=== PATIENT | female | born 1945 | race American Indian/Alaskan Native ===

== ENCOUNTER 2021-10-17 21:22 | Inpatient (IN) | payer BC, MEDICARE ==
[~2021-10-17] VITALS: Ht 160 cm; Wt 57.9 kg
[2021-10-17 22:41] LABS: Mean Corpuscular HGB 32.8 pg (26.0-34.0); Mean Corpuscular HGB Conc 31.7 g/dL (31.5-36.5); Mean Corpuscular Volume 103 fL (80-100); Mean Platelet Volume 12.9 fL (9.1-12.4); NRBC ABSOLUTE 1.39 K/mm3 (0.00-0.02); NRBC Auto 1.1 /100 WBC (0.0-0.2); Platelet Count 59 K/mm3 (150-400); RDW Coefficient Variation 16.6 % (11.7-14.2); RDW Standard Deviation 59.9 fL (35.1-46.3); Red Blood Cell Count 1.22 M/mm3 (3.80-5.20)
[2021-10-17 22:45] LABS: Hematocrit 12.6 % (33.0-51.0); White Blood Cell Count 130.32 K/mm3 (4.00-11.30)
[2021-10-17 22:55] LABS: Albumin, Blood 2.5 g/dL (3.4-5.0); Albumin/Globulin Ratio 0.6 (0.8-1.8); Bilirubin, Total 0.5 mg/dL (0.1-1.0); Calcium, Blood 8.2 mg/dL (8.5-10.1); Creatinine, Blood 0.95 mg/dL (0.40-1.00); Globulin, Blood 3.9 g/dL (2.2-4.0); Total Protein, Blood 6.4 g/dL (6.4-8.2)
[2021-10-17 23:11] LABS: BASOPHILS PERCENT MAN 0 % (0-2); BLASTS PERCENT MAN 95 % (0-0); EOSINOPHILS PERCENT MAN 0 % (0-6); LYMPHOCYTES ABSOLUTE MAN 5.21 K/mm3 (0.84-5.20); LYMPHOCYTES PERCENT MAN 4 % (21-46); MONOCYTES PERCENT MAN 1 % (4-13); TOTAL CELLS COUNTED 100
[2021-10-18] MEDS ORDERED: LORAZEPAM0.5 MG PO (01:31)
--- NOTE | 2021-10-18 02:45 | NUR ---
PT ARRIVES TO PCU VIA GURNEY WITH 2ND UNIT OF PRBC'S TRANSFUSING. PT CONTINUES TO FEELS WEAK, SO SHE IS TRANSFERRED TO PCU BED BY STAFF. PT IS AO, DENIES SOB, PAIN, BUT IS RESTLESS. PT AND SPOUSE BOTH STATE THEY ARE SADDENED AND OVERWHELMED BY HER NEW POSSIBLE DIAGNOSIS SINCE SHE HAS ENJOYED VERY GOOD HEALTH UNTIL NOW. PT HAS HX OF ANXIETY, FOR WHICH SHE OCCASIONALLY TAKES ATIVAN AND HAS HAD A HYSTER AND CHOLECYSTECTOMY. PT SKIN IS PALE, DRY. PIV X [address] IN BILAT AC'S. WILL INITIATE ADMIT ORDERS AND CONTINUE TO MONITOR.
--- NOTE | 2021-10-18 03:35 | NUR ---
DR GEORGES IS CALLED TO CLARIFY TRANSFUSION ORDERS. WILL TRANSFUSE TOTAL OF 4 UNITS PRBC'S AND DRAW LABS AFTER COMPLETED.
--- NOTE | 2021-10-18 06:50 | NUR ---
PT IS SLEEPING MORE RESTFULLY. 3RD OF 4 UNITS PRBC'S INFUSING. VSS. PT HAS NOT YET VOIDED, SO SPECIMEN FOR UA IS PENDING. NO OTHER SIGNIFICANT CHANGES NOTED. WILL CALL CONSULT FOR HEMATOLOGY IN AM. WILL CONTINUE TO MONIOTR AND REPORT TO ONCOMING SHIFT.
[2021-10-18 14:37] LABS: Hematocrit 30.2 % (33.0-51.0); Hemoglobin 10.6 g/dL (11.5-16.0); Mean Corpuscular HGB 30.4 pg (26.0-34.0); Mean Corpuscular HGB Conc 35.1 g/dL (31.5-36.5); NRBC ABSOLUTE 1.49 K/mm3 (0.00-0.02); NRBC Auto 1.6 /100 WBC (0.0-0.2); RDW Coefficient Variation 17.7 % (11.7-14.2); RDW Standard Deviation 52.5 fL (35.1-46.3); Red Blood Cell Count 3.49 M/mm3 (3.80-5.20)
[2021-10-18 14:40] LABS: Mean Corpuscular Volume 87 fL (80-100)
[2021-10-18 14:41] LABS: White Blood Cell Count 95.26 K/mm3 (4.00-11.30)
[2021-10-18 14:42] LABS: Platelet Count 35 K/mm3 (150-400)
[2021-10-18 14:51] LABS: Bun/Creatinine Ratio 18.3 (12.0-20.0); Calcium, Blood 8.1 mg/dL (8.5-10.1); Creatinine, Blood 0.93 mg/dL (0.40-1.00); Potassium, Blood 4.1 mmol/L (3.5-5.5)
--- NOTE | 2021-10-18 17:20 | NUR ---
SHIFT SUMMARY; ASSUMED CARE AT 0700. A/A/OX4. 4 UNITS PRBC COMPLETE SINCE ADMISSION. REPOSITIONS SELF ON BED INDEPENDANTLY, AMBULATES TO RESTROOM WITH WALKER AND STANDBY ASSIST. FAMILY AT BEDSIDE MOST OF SHIFT. DR. COTTON MET WITH PT TODAY TO DISCUSS DIAGNOSIS. PALLATIVE CARE CONSULT ORDERED. PT UNSURE AT THIS POINT IF WILL HAVE TREATMENT. BONE MARROW BX SCHEDULED WITH RADIOLOGY FOR THURSDAY. WILL CONTINUE TO MONITOR AND TREAT UNTIL CHANGE OF SHIFT.
[2021-10-19 04:37] LABS: Hematocrit 28.5 % (33.0-51.0); Hemoglobin 9.8 g/dL (11.5-16.0); Mean Corpuscular HGB 30.2 pg (26.0-34.0); Mean Corpuscular HGB Conc 34.4 g/dL (31.5-36.5); Mean Corpuscular Volume 88 fL (80-100); NRBC ABSOLUTE 1.58 K/mm3 (0.00-0.02); NRBC Auto 1.9 /100 WBC (0.0-0.2); RDW Standard Deviation 54.3 fL (35.1-46.3); Red Blood Cell Count 3.25 M/mm3 (3.80-5.20)
[2021-10-19 04:52] LABS: Platelet Count 34 K/mm3 (150-400); White Blood Cell Count 85.16 K/mm3 (4.00-11.30)
--- NOTE | 2021-10-19 05:08 | NUR ---
SHIFT SUMMARY PT IS ALERT AND ORIENTED X4. SHE DENIES CHEST PAIN/PRESSURE, NO SOB. VITALS ARE STABLE AND IS ON ROOM AIR WITH SATS ABOVE 92%. PT DID HAVE A FEVER OF 100.2 AND WAS TREATED PER EMAR. SHE IS ABLE TO GET UP TO THE BATHROOM SBA USING FWW. SHE HAD TO CRITICAL LABS THIS MORNING OF WBC AND PLT. CALL LIGHT IS WITHIN REACH.
[2021-10-19 06:12] LABS: BASOPHILS PERCENT MAN 0 % (0-2); BLASTS PERCENT MAN 93 % (0-0); EOSINOPHILS PERCENT MAN 0 % (0-6); LYMPHOCYTES ABSOLUTE MAN 5.96 K/mm3 (0.84-5.20); LYMPHOCYTES PERCENT MAN 7 % (21-46); MONOCYTES PERCENT MAN 0 % (4-13); TOTAL CELLS COUNTED 100
[2021-10-19 07:02] LABS: SEG NEUTROPHILS PERCENT MAN 0 % (41-73)
--- NOTE | 2021-10-19 13:21 | NUR ---
Pal Care visit made to pt and at bedside. appropriately tearful and sad. Pt is alert, oriented and sl withdrawn. Chief c/o fatigue. She denies pain. and pt indicate they plan to proceed with bone marrow biopsy scheduled for Thursday. mentioned that it may be done as an outpatient if pt is d/c'd home today or tomorrow. He is aware that pt had an episode of a-fib and this is new for pt. Gently discussed code status and wishes. Pt and both indicate that full code status desired at this time. asked about medications to help pt be more comfortable at home. Pt denies pain but we discussed avoidance of NSAIDS unless cleared by Dr, use of tylenol for mild pain and other medications available for mod to severe pain. I inquired about anxiety and pt states she has used ativan in the past for anxiety prn and that she has a current rx for that at home. She denies the need for it at this time. Time spent listening and supporting. 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 Pt has been feeling tired and under the weather for a few weeks but thought it was related to chemical use in garden. later expressed to RN some apprehension that children will want to pursue agressive measures and stated he and not in favor of that. Plan to visit daily for support.
[2021-10-19 14:42] LABS: Source, Urine Clean Catch
[2021-10-19 14:45] LABS: Appearance, Urine Hazy (Clear); Blood, Urine 4+ (Neg); Color, Urine Amber (P-Yellow); Glucose Qualitative, Urine Neg (Neg); Ketones, Urine 3+ (Neg); Leukocyte Esterase, Urine 1+ (Neg); Nitrite, Urine Neg (Neg); Protein, Urine 2+ (Neg); Urobilinogen, Urine 3+ (Normal)
[2021-10-19 14:56] LABS: Bilirubin, Urine 1+ (Neg)
[2021-10-19 15:17] LABS: Bacteria Mod /hpf; Squamous Epithelial Cells Mod /hpf (Few)
[2021-10-19 15:18] LABS: Hyaline Casts 0-2 /lpf (0-2)
--- NOTE | 2021-10-19 17:35 | NUR ---
SHIFT SUMMARY; ASSUMED CARE AT 0700, A/A/OX4 DURING SHIFT. STANDY BY ASSIST WITH AMBULATION, FAMILY AT BEDSIDE MOST OF DAY, PALLATIVE CARE RN MET WITH PT AND SPOUSE. BONE MARROW BX SCHEDULED WITH RADIOLOGY THURSDAY AND . VSS, NO ACUTE MEDICAL CHANGES, WILL CONTINUE TO MONITOR AND TREAT UNTIL CHANGE OF SHIFT.
[2021-10-20 04:18] LABS: Hemoglobin 10.1 g/dL (11.5-16.0); Mean Corpuscular HGB 30.4 pg (26.0-34.0); Mean Corpuscular HGB Conc 33.7 g/dL (31.5-36.5); Mean Corpuscular Volume 90 fL (80-100); NRBC ABSOLUTE 1.32 K/mm3 (0.00-0.02); NRBC Auto 1.4 /100 WBC (0.0-0.2); RDW Coefficient Variation 17.7 % (11.7-14.2); RDW Standard Deviation 57.1 fL (35.1-46.3); Red Blood Cell Count 3.32 M/mm3 (3.80-5.20)
[2021-10-20 04:23] LABS: Platelet Count 28 K/mm3 (150-400); White Blood Cell Count 95.94 K/mm3 (4.00-11.30)
[2021-10-20 04:41] LABS: Free Thyroxine 1.66 ng/dL (0.70-1.60); Thyroid Stimulating Hormone 0.493 uIU/mL (0.360-4.800); Triiodothyronine, Free 2.1 pg/mL (2.18-3.98)
[2021-10-20 06:25] LABS: BASOPHILS PERCENT MAN 0 % (0-2); BLASTS PERCENT MAN 93 % (0-0); EOSINOPHILS PERCENT MAN 0 % (0-6); LYMPHOCYTES ABSOLUTE MAN 6.71 K/mm3 (0.84-5.20); LYMPHOCYTES PERCENT MAN 7 % (21-46); MONOCYTES PERCENT MAN 0 % (4-13); TOTAL CELLS COUNTED 100
--- NOTE | 2021-10-20 06:27 | NUR ---
SHIFT SUMMARY PT IS ALERT AND ORIENTED. VITALS HAVE REMAINED STABLE AND PT IS ON ROOM AIR WITH SATS ABOVE 92%. THERE HAVE BEEN NO ACUTE CHANGES T/O THE NIGHT. PT DENIES CHEST PAIN/PRESSURE OR SOB. SHE DID HAVE A LOW GRADE FEVER. PT IS SOMEWHAT UNSTABLE ON HER FEET AND IS A SBA WITH FWW. CALL LIGHT IS WITHIN REACH.
[2021-10-20 06:28] LABS: BAND PERCENT MAN 0 % (0-8); SEG NEUTROPHILS PERCENT MAN 0 % (41-73)
--- NOTE | 2021-10-20 06:58 | NUR ---
[facility]ORD[facility] NOT ACCESS[facility] FROM [phone] [id number] 10/19/21
--- NOTE | 2021-10-20 17:45 | NUR ---
SHIFT SUMMARY; ASSUMED CARE AT 0700. A/A/OX3. INDEPENDANT IN ROOM WITH STANDBY ASSIST. VSS. FAMILY AT BEDSIDE MOST OF DAY. STATUS CHANGED TO MEDICAL. PLAN FOR BONE MARROW BX TOMORROW. WILL CONTINUE TO MONITOR AND TREAT UNTIL CHANGE OF SHIFT.
[2021-10-20 22:58] LABS: Source, Urine Clean Catch
[2021-10-20 23:08] LABS: Appearance, Urine Hazy (Clear); Bilirubin, Urine Neg (Neg); Blood, Urine 4+ (Neg); Color, Urine Yellow (P-Yellow); Glucose Qualitative, Urine Neg (Neg); Ketones, Urine 1+ (Neg); Leukocyte Esterase, Urine Neg (Neg); Nitrite, Urine Neg (Neg); Protein, Urine 2+ (Neg); Specific Gravity, Urine 1.015 (1.003-1.022); Urobilinogen, Urine 3+ (Normal)
[2021-10-20 23:21] LABS: Bacteria Many /hpf; Squamous Epithelial Cells Mod /hpf (Few)
--- NOTE | 2021-10-21 00:05 | NUR ---
CALLED DR BOOTH REGARDING PT BEING ANXIOUS FOR HER PROCEDURE IN THE MORNING. SHE MENTIONED THAT SHE MIGHT WANT HER ATIVAN LATER. ORDER OF ATIVAN 0.5MG PO PRN, OBTAINED AND ENTERED.
[2021-10-21 04:45] LABS: Hematocrit 26.4 % (33.0-51.0); Hemoglobin 8.6 g/dL (11.5-16.0); Mean Corpuscular HGB Conc 32.6 g/dL (31.5-36.5); Mean Corpuscular Volume 92 fL (80-100); NRBC ABSOLUTE 0.82 K/mm3 (0.00-0.02); NRBC Auto 1.2 /100 WBC (0.0-0.2); RDW Coefficient Variation 17.2 % (11.7-14.2); RDW Standard Deviation 55.8 fL (35.1-46.3); Red Blood Cell Count 2.87 M/mm3 (3.80-5.20)
[2021-10-21 04:52] LABS: International Normalized Ratio 1.34; Prothrombin Time Results 13.8 Sec (9.7-11.5)
[2021-10-21 04:55] LABS: Platelet Count 19 K/mm3 (150-400)
[2021-10-21 04:56] LABS: Anion Gap 8 mmol/L (6-16); Blood Urea Nitrogen 15 mg/dL (8-24); CO2, Blood 23 mmol/L (21-32); Calcium, Blood 8.1 mg/dL (8.5-10.1); Chloride, Blood 105 mmol/L (98-108); Creatinine, Blood 0.79 mg/dL (0.40-1.00); Glomerular Filtration Rate 78 (60-); Glucose, Blood 109 mg/dL (70-99); Phosphorus, Blood 3.6 mg/dL (2.5-4.9); Potassium, Blood 3.6 mmol/L (3.5-5.5); Sodium, Blood 136 mmol/L (136-145); White Blood Cell Count 66.06 K/mm3 (4.00-11.30)
--- NOTE | 2021-10-21 05:09 | NUR ---
SHIFT SUMMARY PT IS ALERT AND ORIENTED. VITAL SIGNS ARE STABLE AND PT IS ON ROOM AIR WITH SATS AT 92%. TEMP DID INCREASE AND WAS TREATED PER ORDER. THERE HAVE BEEN NO OTHER ACUTE CHANGES. PT STS SHE IS VERY TIRED AND SLEEPY. SHE HAS GOTTEN UP TO THE BATHROOM SBA WITH SOME WEAKNESS BUT BETTER GAIT THEN PREVIOUS NIGHT SHIFTS. SHE DID STATE THAT SHE FELT BETTER. CALL LIGHT WITHIN REACH
--- NOTE | 2021-10-21 05:51 | NUR ---
CALLED DR BOOTH REGARDING CRITICAL LAB VALUES OF PLT 19 AND PT WILL BE HAVING BONE MARROW BIOPSY TODAY. NO FURTHER ORDERS GIVEN.
--- NOTE | 2021-10-21 09:12 | NUR ---
VS OBTAINED, AM MEDS GIVEN. PT ORIENTED X4, IN NAD. REPORT GIVEN TO VITO QUESADA FOR TRANSFER FOR MEDICAL FLOOR.
--- NOTE | 2021-10-21 10:55 | NUR ---
PT TEMP 102.5, 94/66, RESP 28, O2 90% R/A CALLED DR. GEORGES, WILL ORDER FLUIDS. OKAY GIVE TYLENOL AND PLATELETS
--- NOTE | 2021-10-21 11:09 | NUR ---
STARTED PLATELETS, AT RADIOLOGY NEEDS PT NOW. UNDERSTANDS ON PLATELETS AT THIS TIME. OKAY TO GO PER DR AND PER CHARGE.
--- NOTE | 2021-10-21 12:11 | NUR ---
Attempted f/u visit earlier this am. Pt our of room, possible for procedure.
[2021-10-21 14:20] LABS: Performing Lab SYMBIODX; Test Name CYTOGENETICS
--- NOTE | 2021-10-21 15:59 | NUR ---
Request for spiritual care visit made for tomorrow and report on pt called to [employer].
--- NOTE | 2021-10-21 18:29 | NUR ---
PT PLEASANT TODAY. DID HAVE BIOPSY PROCEDURE TODAY. LOW BP DURING PROCEDURE. WAS NOT NOTIFIED. GOT UPDATED WHEN RETUKRNED TO ROOM. DISCUSSED WITH DR. CHARIEZ ORDERED AND GIVEN. MAINTANANCE FLUID STARTED. BLOOD CULTURES POSITIVE. ABX STARTED. NEW BLOOD CULTURES TAKEN. PT AWAKE AND ORIENTED. FAMILY WAS IN MOST OF DAY. BED IN LOW POSITION, CALL LITE IN REACH, CALLS APPROP
[2021-10-22 08:29] LABS: Hematocrit 24.2 % (33.0-51.0); Hemoglobin 7.9 g/dL (11.5-16.0); Mean Corpuscular HGB 30.4 pg (26.0-34.0); Mean Corpuscular HGB Conc 32.6 g/dL (31.5-36.5); Mean Corpuscular Volume 93 fL (80-100); Mean Platelet Volume 9.7 fL (9.1-12.4); NRBC ABSOLUTE 0.52 K/mm3 (0.00-0.02); NRBC Auto 1.1 /100 WBC (0.0-0.2); RDW Coefficient Variation 16.9 % (11.7-14.2); RDW Standard Deviation 55.5 fL (35.1-46.3); White Blood Cell Count 46.33 K/mm3 (4.00-11.30)
[2021-10-22 08:32] LABS: Platelet Count 25 K/mm3 (150-400)
[2021-10-22 09:05] LABS: Bun/Creatinine Ratio 17.6 (12.0-20.0); Calcium, Blood 7.5 mg/dL (8.5-10.1); Creatinine, Blood 0.74 mg/dL (0.40-1.00); Potassium, Blood 3.7 mmol/L (3.5-5.5)
--- NOTE | 2021-10-22 15:51 | NUR ---
Spiritual care visit conducted. Pt is sitting up in bed and alert. Pt's family is present and no one is very warm toward a spiritual care visit initially. I believe it was pt's son who tells me that they are waiting on a biopsy results to determine their course of action. He says he has a team of oncologists in [place] that will be monitoring the decisions and along with the docs from our [facility] will look at treatment options. 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 I provide prayer along those lines as well as providing therapeutic listening and support. Pt and family respond well. Pt is tearful during the prayer but voices appreciation for the visit. I will continue to remain available to pt and family.
--- NOTE | 2021-10-22 16:52 | NUR ---
PATIENT A/OX4, UP WITH 1 ASSIST TO RESTROOM TODAY. PATIENT VERY WITHDRAWN AND QUIET. MULTIPLE FAMILY MEMBERS AT BEDSIDE THIS SHIFT. PATIENT CONTINUES TO HAVE FEVERS, MEDICATING WITH TYLENOL. REPORTS SORE THROAT, TEA WITH HONEY AND CEPACOL LOZENGES USED TO TREAT. SKIN INTACT. NS @ 100ML/HR INFUSING. 20G IV TO L HAND WNL. DENIES ANY NAUSEA OR ABDOMINAL PAIN, REPORTS POOR APPETITE DUE TO SORE THROAT.
--- NOTE | 2021-10-23 05:49 | NUR ---
SHIFT SUMMARY NOC: PT FEBRILE TONIGHT UP TO 101.3 F ORAL. TYLENOL GIVEN AND COLD WASHCLOTH PLACED ON FOREHEAD, RECHECK AT 0524 100.6 F ORAL. PT ANXIOUS LAST NIGHT AND COULDN'T SLEEP, PRN ATIVAN GIVEN. PT UP TO COMMODE MULTIPLE TIMES TO VOID AND BOWEL MOVEMENT.
[2021-10-23 08:05] LABS: Hematocrit 26.1 % (33.0-51.0); Hemoglobin 8.3 g/dL (11.5-16.0); Mean Corpuscular HGB 29.7 pg (26.0-34.0); Mean Corpuscular HGB Conc 31.8 g/dL (31.5-36.5); Mean Corpuscular Volume 94 fL (80-100); NRBC ABSOLUTE 0.62 K/mm3 (0.00-0.02); NRBC Auto 1.2 /100 WBC (0.0-0.2); RDW Coefficient Variation 16.7 % (11.7-14.2); RDW Standard Deviation 56.5 fL (35.1-46.3); Red Blood Cell Count 2.79 M/mm3 (3.80-5.20)
[2021-10-23 08:16] LABS: White Blood Cell Count 51.89 K/mm3 (4.00-11.30)
[2021-10-23 08:17] LABS: Platelet Count 23 K/mm3 (150-400)
[2021-10-23 08:21] LABS: Bun/Creatinine Ratio 14.6 (12.0-20.0); Calcium, Blood 7.9 mg/dL (8.5-10.1); Creatinine, Blood 0.68 mg/dL (0.40-1.00)
[2021-10-23 08:49] LABS: BASOPHILS PERCENT MAN 0 % (0-2); BLASTS PERCENT MAN 96 % (0-0); EOSINOPHILS PERCENT MAN 0 % (0-6); LYMPHOCYTES ABSOLUTE MAN 2.07 K/mm3 (0.84-5.20); LYMPHOCYTES PERCENT MAN 4 % (21-46); MONOCYTES PERCENT MAN 0 % (4-13); TOTAL CELLS COUNTED 100
[2021-10-23 08:52] LABS: BAND PERCENT MAN 0 % (0-8); SEG NEUTROPHILS PERCENT MAN 0 % (41-73)
[2021-10-23 15:26] LABS: Source, Urine Clean Catch
[2021-10-23 15:39] LABS: Appearance, Urine Clear (Clear); Bilirubin, Urine Neg (Neg); Blood, Urine 3+ (Neg); Color, Urine Amber (P-Yellow); Glucose Qualitative, Urine Neg (Neg); Ketones, Urine 3+ (Neg); Leukocyte Esterase, Urine Neg (Neg); Nitrite, Urine Neg (Neg); Protein, Urine 2+ (Neg); Specific Gravity, Urine 1.015 (1.003-1.022); Urobilinogen, Urine 1+ (Normal)
[2021-10-23 15:56] LABS: Bacteria Few /hpf; Squamous Epithelial Cells Few /hpf (Few); White Blood Cells, Urine 0-2 /hpf (0-5)
[2021-10-23 15:57] LABS: Granular Casts 0-2 /lpf (0); Hyaline Casts 0-2 /lpf (0-2)
--- NOTE | 2021-10-23 17:36 | NUR ---
NO NEW CONCERNS THIS SHIFT. PATIENT REPORTS THAT SORE THROAT IS IMPROVING, DENIES NEED FOR CEPACOL LOZENGES. TOLERATING DIET, APPETITE SLIGHTLY IMPROVED TODAY. VSS, ON RA. FEVER THIS AFTERNOON, MEDICATED WITH TYLENOL. DENIES ANY NAUSEA OR ABDOMINAL PAIN. UP WITH 1 ASSIST TO BSC, WEAK WITH TRANSFERS. CONTINENT OF URINE/STOOL, HAVING REGULAR BM'S. ABLE TO MAKE NEEDS KNOWN.
--- NOTE | 2021-10-24 05:45 | NUR ---
SHIFT SUMMARY NOC: PT SLEPT MOST OF NIGHT. SLIGHTLY FEBRILE THIS AM 100.3 F ORAL, NO TYLENOL GIVEN. NO ACUTE EVENTS.
[2021-10-24 10:08] LABS: Hematocrit 26.2 % (33.0-51.0); Hemoglobin 8.3 g/dL (11.5-16.0); Mean Corpuscular HGB 29.9 pg (26.0-34.0); Mean Corpuscular HGB Conc 31.7 g/dL (31.5-36.5); Mean Corpuscular Volume 94 fL (80-100); NRBC ABSOLUTE 0.72 K/mm3 (0.00-0.02); RDW Coefficient Variation 16.7 % (11.7-14.2); Red Blood Cell Count 2.78 M/mm3 (3.80-5.20)
[2021-10-24 10:29] LABS: Bun/Creatinine Ratio 16.1 (12.0-20.0); Calcium, Blood 8.2 mg/dL (8.5-10.1); Creatinine, Blood 0.62 mg/dL (0.40-1.00); Potassium, Blood 3.4 mmol/L (3.5-5.5)
[2021-10-24 10:34] LABS: Platelet Count 22 K/mm3 (150-400); White Blood Cell Count 73.75 K/mm3 (4.00-11.30)
[2021-10-24 13:02] LABS: BASOPHILS PERCENT MAN 0 % (0-2); BLASTS PERCENT MAN 96 % (0-0); EOSINOPHILS PERCENT MAN 0 % (0-6); LYMPHOCYTES ABSOLUTE MAN 2.95 K/mm3 (0.84-5.20); LYMPHOCYTES PERCENT MAN 4 % (21-46); MONOCYTES PERCENT MAN 0 % (4-13); TOTAL CELLS COUNTED 200
[2021-10-24 14:14] LABS: SEG NEUTROPHILS PERCENT MAN 0 % (41-73)
--- NOTE | 2021-10-24 18:16 | NUR ---
PATIENT A/OX4, CAN BE UP INDEPENDENTLY IN ROOM WITH FWW. DENIES ANY PAIN OR DISCOMFORT. REPORTED SOME SOB THIS AM, PLACED ON 2LO2 FOR COMFORT AND ATIVAN GIVEN TO TREAT ANXIETY. SOB HAS RESOLVED. WORKED WITH PT/OT TODAY. 20G IV TO L HAND WNL AND SL. FAMILY VERY SUPPORTIVE. PATIENT HOPES TO D/C HOME TOMORROW AND BEGIN TREATMENT FOR LEUKEMIA ON THURSDAY.
--- NOTE | 2021-10-25 06:01 | NUR ---
SHIFT SUMMARY AOX4. SLOW TO RESPOND TO QUESTIONS. FATIGUED & GEN WEAKNESS. SLIGHT FEVER OF 99.7 HOWEVER TYLENOL GIVEN PRIOR TO THIS NURSE COMING ON SHIFT & THIS AM VSS. DENIES PAIN OR N/V. DOES GET A LITTLE DYSPNIC c ACTIVITY @TIMES, USES 1L O2 PRN FOR COMFORT, SPO2 >90% ON RA. REPORTS ANXIOUSNESS, MEDICATED 1x O.5 MG ATIVAN & PT SLEPT WELL T/O NIGHT. CALL LIGHT IN REACH & PT ABLE TO MAKE NEEDS KNOWN. WILL MONITOR.
[2021-10-25] MEDS ORDERED: ACET325 PO (12:40)
[2021-10-25] MEDS ORDERED: ACYC400 PO (12:40)
[2021-10-25] MEDS ORDERED: DIFLUCAN100 MG PO (12:44)
[2021-10-25] MEDS ORDERED: METO25 PO (12:45)
[2021-10-25] MEDS ORDERED: LEVFLO500 PO (12:46)
[2021-10-25] MEDS ORDERED: PROM25 PO (12:46)
[2021-10-25] MEDS ORDERED: CEPACOL MT (12:47)
--- NOTE | 2021-10-25 13:15 | NUR ---
DISCHARGE INSTRUCTIONS GIVEN TO PATIENT AND HER . IV DC'D. PATIENT IS DRESSED. DISHRGE HOME WITH AND SON
== END 2021-10-25 13:18 | disposition home or self-care (01) | DRG 835 ==
LOC: ER 21:22 → MEDS 10-18 00:30 → PCU 10-18 00:30 → ER 10-18 02:05 → PCU 10-18 02:05 → MEDS 10-21 09:17
PROVIDERS: Internal Medicine; Internal Medicine Hematology & Oncology; Student in an Organized Health Care Education/Training Program; ADMIT Internal Medicine
PROC: 30233N1 Transfusion of Nonautologous Red Blood Cells into Peripheral Vein, Percutaneous Approach (ICD-10-PCS; principal; 2021-10-18)
PROC: 07DR3ZX Extraction of Iliac Bone Marrow, Percutaneous Approach, Diagnostic (ICD-10-PCS; 2021-10-21)
DX: C92.00 Acute myeloblastic leukemia, not having achieved remission (principal); R65.10 Systemic inflammatory response syndrome (SIRS) of non-infectious origin without acute organ dysfunction; D63.0 Anemia in neoplastic disease; D69.6 Thrombocytopenia, unspecified; R53.81 Other malaise; I48.0 Paroxysmal atrial fibrillation; Z51.5 Encounter for palliative care; E83.51 Hypocalcemia; J02.9 Acute pharyngitis, unspecified; I95.9 Hypotension, unspecified; Z90.710 Acquired absence of both cervix and uterus; Z91.011 Allergy to milk products; Z79.899 Other long term (current) drug therapy
CPT/HCPCS: 20225; 36415; 36430; 71045; 71046; 77012; 80048; 80053; 80069; 81001; 81450; 82330; 83605; 83690; 84439; 84443; 84481; 85007; 85025; 85027; 85097; 85610; 85730; 86850; 86900; 86901; 86920; 87040; 87081; 87086; 87430; 88184; 88185; 88305; 93005; 93010; 93306; 94761; 97110; 97116; 97162; 97165; 97535; 99285-25; A9270; J0610; J0692; J0696; J7030; J7040; P9016; P9035

== ENCOUNTER 2021-11-05 00:22 | Day surgery (SDC) | payer BC, MEDICARE ==
[~2021-11-05 00:22] MED LIST: ACET325 PO; ACYC400 PO; CEPACOL MT; DIFLUCAN100 MG PO; LEVFLO500 PO; LORAZEPAM0.5 MG PO; METO25 PO; PROM25 PO
[2021-11-05] MEDS ORDERED: VENCLEXTA100 MG PO (13:46)
== END 2021-11-05 17:53 | disposition home or self-care (01) ==
LOC: ATC 00:22
DX: C92.00 Acute myeloblastic leukemia, not having achieved remission (principal); I48.91 Unspecified atrial fibrillation; Z87.891 Personal history of nicotine dependence; Z79.899 Other long term (current) drug therapy
CPT/HCPCS: 36415; 36430; 86850; 86900; 86901; 86923; J7040; P9016; P9035

== ENCOUNTER 2021-11-10 02:01 | Inpatient (IN) | payer BC, MEDICARE ==
[~2021-11-10] VITALS: Ht 152.4 cm; Wt 55.0 kg
[~2021-11-10 02:01] MED LIST changes: +VENCLEXTA100 MG PO
[2021-11-10 02:36] LABS: Mean Corpuscular HGB 29.9 pg (26.0-34.0); Mean Corpuscular HGB Conc 33.1 g/dL (31.5-36.5); Mean Corpuscular Volume 90 fL (80-100); NRBC ABSOLUTE 0.07 K/mm3 (0.00-0.02); NRBC Auto 46.7 /100 WBC (0.0-0.2); RDW Coefficient Variation 14.7 % (11.7-14.2); RDW Standard Deviation 48.1 fL (35.1-46.3); Red Blood Cell Count 1.57 M/mm3 (3.80-5.20)
[2021-11-10 02:39] LABS: BASOPHILS PERCENT AUTO 0 % (0-2); EOSINOPHILS PERCENT AUTO 0 % (0-6); IMMATURE GRAN PERCENT AUTO 0 % (0-1); LYMPHOCYTES ABSOLUTE AUTO 0.11 K/mm3 (0.84-5.20); LYMPHOCYTES PERCENT AUTO 73 % (21-46); MONOCYTES ABSOLUTE AUTO 0.03 K/mm3 (0.16-1.47); MONOCYTES PERCENT AUTO 20 % (4-13); NEUTROPHILS ABSOLUTE AUTO 0.01 K/mm3 (1.96-9.15); NEUTROPHILS PERCENT AUTO 7 % (41-73)
[2021-11-10 02:41] LABS: Hematocrit 14.2 % (33.0-51.0); Hemoglobin 4.7 g/dL (11.5-16.0); White Blood Cell Count 0.15 K/mm3 (4.00-11.30)
[2021-11-10 02:42] LABS: Platelet Count 1 K/mm3 (150-400)
[2021-11-10 02:52] LABS: Albumin, Blood 1.7 g/dL (3.4-5.0); Albumin/Globulin Ratio 0.5 (0.8-1.8); Bilirubin, Total 1.2 mg/dL (0.1-1.0); Bun/Creatinine Ratio 33.5 (12.0-20.0); Creatinine, Blood 0.63 mg/dL (0.40-1.00); Globulin, Blood 3.2 g/dL (2.2-4.0); Potassium, Blood 4.1 mmol/L (3.5-5.5); Total Protein, Blood 4.9 g/dL (6.4-8.2)
[2021-11-10 03:07] LABS: BASOPHILS PERCENT MAN 0 % (0-2); BLASTS PERCENT MAN 20 % (0-0); EOSINOPHILS PERCENT MAN 0 % (0-6); LYMPHOCYTES PERCENT MAN 70 % (21-46); MONOCYTES PERCENT MAN 0 % (4-13); NEUTROPHILS ABSOLUTE MAN 0.01 K/mm3 (1.96-9.15); SEG NEUTROPHILS PERCENT MAN 10 % (41-73); TOTAL CELLS COUNTED 10
--- NOTE | 2021-11-10 07:21 | NUR ---
ASSUMED PT CARE FORM RN IN ED AT 0610. FIRST UNIT OF BLOOD TRANFUSING AN ADMIT. TRANSFERED TO BED VIA SLIDER SHEET. PT IS ORIENTED BUT DROWSY. FAMILY ATTENTIVE AT BEDSIDE. HR IN A-FIB RVR IN THE 120'S. HYPOTENSIVE BP NOTED WITH MAP AT 64. PT TO RECEIVE SECOND UNIT OF BLOOD. O2 SATS > 92% ON RA. PASSED INFORMATION TO RAMBO RN ON DAY SHIFT.
--- NOTE | 2021-11-10 07:52 | NUR ---
NURSING PCU DAYSHIFT: Assumed care of pt at approx 0700. A/O, pleasant, cooperative w/care. Very weak though able to xfer OOB and reposition w/minimal assist. Skin is fragile w/several scattered bruises, pressure wound to left buttock (photo in chart). Denies any pain/discomfort at this time. Tele in place, afib w/HR 110-120 at rest and 130's w/exertion, SBP 106, no c/o CP/pressure, no noted edema. L/S cta t/o, O2 sat upper 90's on RA, denies dyspnea, no noted cough. Abd SNT, BT+, voiding tea colored urine, small BM this a.m. PIV x1, small amt of leaking though flushes well, IV abx infusing as scheduled. Pt appears fragile at this time. S/O and sons at bedside, plan of care discussed. CN placing PG at this time for 2 unit of PRBC's. Pt denies any current needs or questions, awaiting rounding from PMD, call light in reach, cont to monitor for any changes.
--- NOTE | 2021-11-10 09:40 | NUR ---
Supportive visit this AM. Pt resting in bed with Primary RN Dulce at bedside providing care. Pt's spouse, and 2 sons are at bedside. Pt has elevated body temperature and is shivering. Dulce offers Tylenol. Family appears a bit researved at this time. Family does report Pt's appetite has been some what decreased. Family reports Pt has seen Dr Clarke just once so far which was on 10/28/21. They are requesting for Dr Clarke or Latasha Coffey to be consulted. Family expresses appreciation and reports no other concerns at this time. Palliative Care will remain available for supportive and therapeutic visits.
[2021-11-10 12:30] LABS: Source, Urine Clean Catch
[2021-11-10 12:35] LABS: Appearance, Urine Clear (Clear); Bilirubin, Urine Neg (Neg); Blood, Urine Neg (Neg); Color, Urine Yellow (P-Yellow); Glucose Qualitative, Urine Neg (Neg); Ketones, Urine Neg (Neg); Leukocyte Esterase, Urine Neg (Neg); Nitrite, Urine Neg (Neg); Protein, Urine Neg (Neg); Urobilinogen, Urine 2+ (Normal)
[2021-11-10 14:18] LABS: Hematocrit 20.8 % (33.0-51.0); Hemoglobin 7.1 g/dL (11.5-16.0); Mean Corpuscular HGB Conc 34.1 g/dL (31.5-36.5); Mean Corpuscular Volume 88 fL (80-100); Mean Platelet Volume 9.2 fL (9.1-12.4); NRBC ABSOLUTE 0.09 K/mm3 (0.00-0.02); NRBC Auto 64.3 /100 WBC (0.0-0.2); Platelet Count 78 K/mm3 (150-400); RDW Coefficient Variation 14.4 % (11.7-14.2); RDW Standard Deviation 45.6 fL (35.1-46.3); Red Blood Cell Count 2.37 M/mm3 (3.80-5.20)
[2021-11-10 14:27] LABS: BASOPHILS PERCENT AUTO 0 % (0-2); EOSINOPHILS PERCENT AUTO 0 % (0-6); IMMATURE GRAN PERCENT AUTO 0 % (0-1); LYMPHOCYTES PERCENT AUTO 71 % (21-46); MONOCYTES ABSOLUTE AUTO 0.03 K/mm3 (0.16-1.47); MONOCYTES PERCENT AUTO 21 % (4-13); NEUTROPHILS ABSOLUTE AUTO 0.01 K/mm3 (1.96-9.15); NEUTROPHILS PERCENT AUTO 7 % (41-73)
[2021-11-10 14:28] LABS: White Blood Cell Count 0.14 K/mm3 (4.00-11.30)
[2021-11-10 14:54] LABS: BASOPHILS PERCENT MAN 0 % (0-2); EOSINOPHILS PERCENT MAN 0 % (0-6); LYMPHOCYTES ABSOLUTE MAN 0.13 K/mm3 (0.84-5.20); LYMPHOCYTES PERCENT MAN 93 % (21-46); MONOCYTES PERCENT MAN 0 % (4-13); SEG NEUTROPHILS PERCENT MAN 7 % (41-73); TOTAL CELLS COUNTED 15
--- NOTE | 2021-11-10 18:27 | NUR ---
NURSING PCU DAYSHIFT SUMMARY: No significant changes noted t/o the shift. Pt remains afib w/HR 110-120's, though increases to 130's w/minimal exertion. BP has remained stable, pt w/o c/o CP/pressure. Remains weak and tires easily, FC placed d/t pt's frequent need to use BSC and increasing fatigue. Blood and platelets administered as ordered, pt has received a total of 4 PRBCs and 2 platelets, tolerated well, improved CBC values noted. Family has remained at bedside t/o majority of the shift and has been involved in care planning. No s/s of acute distress at this time, resting comfortably, cont to monitor until rpt is given to NOC RN.
--- NOTE | 2021-11-10 20:54 | NUR ---
CODE STATES CHANGED TO DNR PER FAMILY REQUEST. DR. CANDELARIA INFORMED OF REQUEST, ORDER RECEIVED.
--- NOTE | 2021-11-11 04:30 | NUR ---
PT HAS BEEN ORIENTED X 4 BUT LETHARGIC. WAKES EASILY. HR 110-120 WITH OCCASION INCREASE INTO 140 THAT RETURNS TO 110'S QUICKLY. PT DENIES ANY CHEST PAIN OR SBO. TEMP HAVE REMAINED < 100 WITH PT TAKING TYLENOL FOR HEADACHE X 1 DURING SHIFT. CODE STATUES CHANGED TO DNR AT PT REQUEST. BUTT CATHETER DRAINING CLEAR, YELLOW URINE WITHOUT DIFFICULTY.
[2021-11-11 04:53] LABS: Albumin, Blood 1.8 g/dL (3.4-5.0); Albumin/Globulin Ratio 0.5 (0.8-1.8); Bilirubin, Total 2.2 mg/dL (0.1-1.0); Bun/Creatinine Ratio 27.9 (12.0-20.0); Calcium, Blood 7.8 mg/dL (8.5-10.1); Creatinine, Blood 0.61 mg/dL (0.40-1.00); Globulin, Blood 3.4 g/dL (2.2-4.0); Potassium, Blood 3.2 mmol/L (3.5-5.5); Total Protein, Blood 5.2 g/dL (6.4-8.2)
[2021-11-11 06:13] LABS: Hematocrit 28.5 % (33.0-51.0); Hemoglobin 10.1 g/dL (11.5-16.0); Mean Corpuscular HGB 30.6 pg (26.0-34.0); Mean Corpuscular HGB Conc 35.4 g/dL (31.5-36.5); Mean Corpuscular Volume 86 fL (80-100); Mean Platelet Volume 9.9 fL (9.1-12.4); NRBC Auto 76.9 /100 WBC (0.0-0.2); RDW Coefficient Variation 14.1 % (11.7-14.2); RDW Standard Deviation 44.2 fL (35.1-46.3)
[2021-11-11 06:46] LABS: Platelet Count 26 K/mm3 (150-400); White Blood Cell Count 0.13 K/mm3 (4.00-11.30)
[2021-11-11 07:27] LABS: BASOPHILS PERCENT MAN 0 % (0-2); EOSINOPHILS PERCENT MAN 0 % (0-6); LYMPHOCYTES ABSOLUTE MAN 0.12 K/mm3 (0.84-5.20); LYMPHOCYTES PERCENT MAN 94 % (21-46); MONOCYTES PERCENT MAN 0 % (4-13); SEG NEUTROPHILS PERCENT MAN 6 % (41-73); TOTAL CELLS COUNTED 31
--- NOTE | 2021-11-11 09:59 | NUR ---
Received call from Primary RN Marielle reporting Pt's sister has expressed concerns regarding Pt's code status. Arrived to Pt's room and escorted Pt's sister and spouse out to parr to discuss concerns. Pt's sons arrive. Listened as sons and sister express frustration that Pt's code status was changed without talking with Pt first. Discussed plan to speak with Pt now regarding her wishes for CPR. Family back to room with this RN and fur operator Dulce arrives to participate in discussion. Notes on Pt's chart suggest that family requested code status change with Pt confirming last night. Allowed family to discuss further with Pt regarding code status wishe and risks were discussed. Further education on life sustaining treatments including potential [facility] consequences discussed further. Ended visit to allow Pt and family to process further. Palliative Care will F/U for supportive visit at a later time.
[2021-11-11] MEDS ORDERED: METO25ER (12:51)
[2021-11-11] MEDS ORDERED: METO25ER PO (12:51)
--- NOTE | 2021-11-11 18:20 | NUR ---
SHIFT SUMMARY PT PLEASANT DURING INTERACTION. PT APPEARS FATIGUE AND WEAK. FAMILY AT BEDSIDE WITH PATIENT. PT A&O X4. HR SR/AFIB WITH RATE IN 130'S-140'S. MEDICATED PER EMAR. PRN LOPRESSOR NOT GIVEN DUE TO SOFT SBP. PT RECENTLY CONVERTED TO SINUS RHYTHM/SINUS TACH AND HAS SUSTAINED RATE AND RHYTHM. PT DENIES CHEST PAIN, CHEST PRESSURE OR SOB. PT DENIES DIZZINESS. PT FEBRILE W/TEMPERATURE OF 100.5; MEDICATED PER EMAR. O2 >95% ON RA. BUTT CATHETER IN PLACE AND DRAINING TO GRAVITY W/JAYY COLORED URINE. NO VISIBLE SEDIMENT NOTED. PT FREEQUENTLY UP TO BSC WITH WATERY STOOL AND/OR FLATUS. PT REPORTS "GAS AND STOMACH BOTHERING HER". CALL LIGHT WITHIN REACH AND BED IN LOWEST POSITION. FAMILY EDUCATED ON PLAN, UPDATE ON PT CONDITION AND OTHER QUESTIONS. FAMILY AND PT RECEPTIVE TO EDUCATION.
--- NOTE | 2021-11-11 20:01 | NUR ---
ASSUMED PT CARE FORM GIAN PADRON ON DAY SHIFT. PT IS ORIENTED X 4, DROWSY BUT AROUSABLE. PT IS COOPERATIVE WITH FLAT AFFECT. PT STATES "I JUST WANT TO SLEEP". REASURED PT MUCH REST POSSIBLE WOULD BE ALLOWED HER. SLIGHT FEVER NOTED AT 100.1, AGREES TO TAKE TYLENOL WITH EVENING MEDS. HR A-FIB IN 110'S-120'S, NO COMPLAINTS OF CHEST PAIN. WILL MONITOR. OTHER VS STABLE. BUTT CATHETER IN PLACE DRAINING CLEAR, TEA COLORED URINE. CALL LIGHT IN REACH.
--- NOTE | 2021-11-11 22:36 | NUR ---
PT REQUESTING TYLENOL FOR HEADACHE. INFORMED PT NEXT DOSE NOT DUE TILL 0, OFFERED TO CALL [facility] FOR SECONDARY MEDICATION. PT DECLINES AT THIS TIME.
[2021-11-12 04:39] LABS: Hematocrit 25.3 % (33.0-51.0); Hemoglobin 8.7 g/dL (11.5-16.0); Mean Corpuscular HGB 30.4 pg (26.0-34.0); Mean Corpuscular HGB Conc 34.4 g/dL (31.5-36.5); Mean Corpuscular Volume 89 fL (80-100); Mean Platelet Volume 11.7 fL (9.1-12.4); NRBC ABSOLUTE 0.04 K/mm3 (0.00-0.02); NRBC Auto 36.4 /100 WBC (0.0-0.2); RDW Coefficient Variation 14.4 % (11.7-14.2); RDW Standard Deviation 46.2 fL (35.1-46.3); Red Blood Cell Count 2.86 M/mm3 (3.80-5.20)
[2021-11-12 04:46] LABS: BASOPHILS PERCENT AUTO 0 % (0-2); EOSINOPHILS PERCENT AUTO 0 % (0-6); IMMATURE GRAN PERCENT AUTO 0 % (0-1); LYMPHOCYTES ABSOLUTE AUTO 0.08 K/mm3 (0.84-5.20); LYMPHOCYTES PERCENT AUTO 73 % (21-46); MONOCYTES ABSOLUTE AUTO 0.01 K/mm3 (0.16-1.47); MONOCYTES PERCENT AUTO 9 % (4-13); NEUTROPHILS ABSOLUTE AUTO 0.02 K/mm3 (1.96-9.15); NEUTROPHILS PERCENT AUTO 18 % (41-73); White Blood Cell Count 0.11 K/mm3 (4.00-11.30)
[2021-11-12 04:47] LABS: Platelet Count 13 K/mm3 (150-400)
[2021-11-12 04:58] LABS: Alanine Aminotransfer (ALT/SGP 17 U/L (12-78); Albumin, Blood 1.7 g/dL (3.4-5.0); Albumin/Globulin Ratio 0.5 (0.8-1.8); Alk Phos 68 U/L (50-136); Anion Gap 5 mmol/L (6-16); Aspartate Aminotrans (AST/SGOT 9 U/L (12-37); Bilirubin, Total 1.7 mg/dL (0.1-1.0); Blood Urea Nitrogen 17 mg/dL (8-24); Bun/Creatinine Ratio 27.5 (12.0-20.0); C-REACTIVE PROTEIN, EXT RANGE >19.000 mg/dL (0.000-0.300); CO2, Blood 27 mmol/L (21-32); Calcium, Blood 7.9 mg/dL (8.5-10.1); Chloride, Blood 102 mmol/L (98-108); Creatinine, Blood 0.62 mg/dL (0.40-1.00); Globulin, Blood 3.6 g/dL (2.2-4.0); Glomerular Filtration Rate 93 (60-); Glucose, Blood 108 mg/dL (70-99); Sodium, Blood 134 mmol/L (136-145); Total Protein, Blood 5.3 g/dL (6.4-8.2)
--- NOTE | 2021-11-12 05:22 | NUR ---
PT RESTING QUIETLY IN BED THROUGHOUT NIGHT OTHER THEN TO TRANSFER TO [facility]. PT HAS REMAINED AFEBRILE THROUGHOUT REST OF NIGHT. NO FURTHER COMPLAINTS OF HEADACHE. HR REMAINS SINUS TACH IN 110'S. BP STABLE. O2 SATS > 92% ON RA.
--- NOTE | 2021-11-12 13:43 | NUR ---
SUMMARY WHEN ENTERING THE PT'S ROOM SHE WAS ASLEEP AND SPO2 WAS SUSTAINING 89-91% RA. SHE WAS PLACED ON 2 L NC AND SPO2 >95%. SHE HAD A FEVER AT 100.4 AND TYLONAL WAS GIVEN ON NIGHT ABOUT 0630. DURING REASSESSMENT PT'S TEMP WENT DOWN TO 99.4. WHEN SHE WAS AWAKE AND VISITING HER FAMILY, O2 WAS TURNED OFF TO TRIAL AND THE PT. HAS BEEN SUSTAINING >90% SINCE. PT. HAS NO COMPLAINTS BUT IS FEELING WEAK AND DOES NOT HAVE MUCH OF AN APPETITE. DUE TO PLATELETS, HGB, AND WBC TRENDING DOWN THE PT WISHES TO STAY ANOTHER NIGHT IN THE HOSPITAL. NOTIFIED. HER INPATIENT STATUS WAS CHANGED TO MED NO TELE, AND THE PT HAS BEEN STABLE. FAMILY EDUCATED ON TREATMENTS, AND PT'S LABS. SHE IS A&O, BUT VERY DROWSY. WILL CONTINUE TO MONITOR.
--- NOTE | 2021-11-12 17:51 | NUR ---
PT TRANSFERRED TO [facility]IA HOSPITAL BED, 2 SONS AT THE BEDSIDE. ALL BELONGINGS SENT WITH THE PT, HOME MEDS NOT IN USE WAS SENT HOME WITH THE FAMILY MEMBER WAS ALSO EDUCATED ABOUT IMPORTANCE OF NOT MEDICATING PT WITH HOME MEDS WHILE IN THE HOSPITAL. CHEMO DRUGS IN GREEN BAG SENT ALONG WITH THE PT TO MEDICAL FLOOR. REPORT GIVEN TO RECEIVING RN BY GAL GUTIERREZ
--- NOTE | 2021-11-12 18:15 | NUR ---
SHIFT SUMMARY: PT TRANSFERRED FROM PCU WITH 2 SONS AT BEDSIDE. PT APPEARS TIRED, SLIGHTLY JAUNDICE SKIN AND SCATTERED BRUISING. ASSISTED UP TO BSC ONCE. OFFERED RESTROOM BUT PT DIDN'T FEEL SHE HAD THE ENERGY TO GO THAT FAR. EATING DINNER AT THIS TIME, PROVIDED WITH A CUP OF DECAF TEA. DENIES FURTHER NEEDS AT THIS TIME.
[2021-11-13 05:28] LABS: Hematocrit 25.5 % (33.0-51.0); Hemoglobin 8.8 g/dL (11.5-16.0); Mean Corpuscular HGB 30.9 pg (26.0-34.0); Mean Corpuscular HGB Conc 34.5 g/dL (31.5-36.5); Mean Corpuscular Volume 90 fL (80-100); Mean Platelet Volume 11.1 fL (9.1-12.4); RDW Coefficient Variation 14.5 % (11.7-14.2); Red Blood Cell Count 2.85 M/mm3 (3.80-5.20)
[2021-11-13 05:43] LABS: Platelet Count 24 K/mm3 (150-400); White Blood Cell Count 0.12 K/mm3 (4.00-11.30)
--- NOTE | 2021-11-13 05:47 | NUR ---
SHIFT SUMMARY: PT IS ALERT AND ORIENTED. PT IS CALM AND COOPERATIVE WITH CARE. PT CALLS APPROPRIATELY. PT IS A ONE ASSIST TO THE BSC. PT WAS FEBRILE ON TWO OCCASIONS, GAVE PRN TYLENOL. PT WAS TACHYCARDIC, CALLED AND HAD TELE PUT BACK ON, GAVE PRN LOPRESSOR, RATE IMPROVED. PT DENIES PAIN, NAUSEA, VOMITING, AND SOB. WILL CONTINUE TO MONITOR.
[2021-11-13 05:52] LABS: Albumin, Blood 1.6 g/dL (3.4-5.0); Anion Gap 8 mmol/L (6-16); Blood Urea Nitrogen 14 mg/dL (8-24); Bun/Creatinine Ratio 25.8 (12.0-20.0); CO2, Blood 25 mmol/L (21-32); Calcium, Blood 8.3 mg/dL (8.5-10.1); Chloride, Blood 101 mmol/L (98-108); Creatinine, Blood 0.54 mg/dL (0.40-1.00); Glomerular Filtration Rate 96 (60-); Glucose, Blood 100 mg/dL (70-99); Phosphorus, Blood 2.6 mg/dL (2.5-4.9); Potassium, Blood 3.6 mmol/L (3.5-5.5); Sodium, Blood 134 mmol/L (136-145)
[2021-11-13 07:00] LABS: BASOPHILS PERCENT MAN 0 % (0-2); EOSINOPHILS PERCENT MAN 0 % (0-6); LYMPHOCYTES % ATYPICAL MANUAL 3 % (0-0); LYMPHOCYTES ABSOLUTE MAN 0.11 K/mm3 (0.84-5.20); LYMPHOCYTES PERCENT MAN 92 % (21-46); MONOCYTES PERCENT MAN 3 % (4-13); SEG NEUTROPHILS PERCENT MAN 3 % (41-73); TOTAL CELLS COUNTED 36
--- NOTE | 2021-11-13 17:44 | NUR ---
PT AOX4 AND COOPERATIVE OF CARE. PT HAS BUTT IN PLACE AND IS ONE PERSON ASSIST TO BEDSIDE COMMODE. PT EATING ON AND OFF. PT HAS HAD AN INCREASED HR RANGING FROM 120s -160 AT TIMES. PT WAS TREATED FOR INCREASED HR PER EMAR, BUT THIS HAS NOT BEEN EFFECTIVE NEEDED. DR JADE NOTIFIED AND ADDED MEDICATION TO EMAR. PT ALSO BEGAN TO RUN A TEMP IN THE AFTERNOON OF 101.1 AND WAS TREATED PER EMAR THIS BROUGHT HER TEMP DOWN TO 99.4, PT IS RESTING IN BED WITH CALL LIGHT IN REACH. WILL CONTINUE TO MONITOR.
[2021-11-14 05:30] LABS: Hematocrit 23.8 % (33.0-51.0); Hemoglobin 7.9 g/dL (11.5-16.0); Mean Corpuscular HGB 30.4 pg (26.0-34.0); Mean Corpuscular HGB Conc 33.2 g/dL (31.5-36.5); Mean Corpuscular Volume 92 fL (80-100); Mean Platelet Volume 10.2 fL (9.1-12.4); RDW Coefficient Variation 14.6 % (11.7-14.2); RDW Standard Deviation 48.5 fL (35.1-46.3)
[2021-11-14 05:35] LABS: Platelet Count 10 K/mm3 (150-400); White Blood Cell Count 0.15 K/mm3 (4.00-11.30)
[2021-11-14 06:00] LABS: Albumin, Blood 1.5 g/dL (3.4-5.0); Anion Gap 7 mmol/L (6-16); Blood Urea Nitrogen 16 mg/dL (8-24); Bun/Creatinine Ratio 26.8 (12.0-20.0); CO2, Blood 23 mmol/L (21-32); Calcium, Blood 7.8 mg/dL (8.5-10.1); Chloride, Blood 104 mmol/L (98-108); Glomerular Filtration Rate 94 (60-); Glucose, Blood 113 mg/dL (70-99); Phosphorus, Blood 2.7 mg/dL (2.5-4.9); Sodium, Blood 134 mmol/L (136-145)
[2021-11-14 06:21] LABS: BASOPHILS PERCENT MAN 0 % (0-2); EOSINOPHILS PERCENT MAN 0 % (0-6); LYMPHOCYTES ABSOLUTE MAN 0.13 K/mm3 (0.84-5.20); LYMPHOCYTES PERCENT MAN 92 % (21-46); MONOCYTES PERCENT MAN 0 % (4-13); SEG NEUTROPHILS PERCENT MAN 4 % (41-73); TOTAL CELLS COUNTED 25
[2021-11-14 06:22] LABS: BLASTS PERCENT MAN 4 % (0-0)
--- NOTE | 2021-11-14 07:11 | NUR ---
SHIFT SUMMARY [address] JEAN TO NOTIFY HIM THAT THE PATIENT'S HEART RATE WAS SUSTAINING IN THE 140'S DESPITE RECEIVING 5 MG LOPRESSOR AT 2108. REPORTED THAT PATIENT'S BLOOD PRESSURE WAS 95/58 AND TEMP WAS 102.4 AND THAT TYLENOL WAS GIVEN AND ICE PACKS WERE BEING PLACED ON PATIENT. SEE ORDERS... [address] BOOTH TO NOTIFY HER THAT THE PATIENT'S HEART RATE WAS STILL IN THE 140'S, REVIEWED WHAT HAD BEEN DISCUSSED WITH DR JEAN AND CURRENT VITALS. DR BOOTH ORDERED A 500 ML BOLUS OF LACTATED RINGERS [address] BOOTH TO NOTIFY HER THAT WHEN THIS RN STARTED THE BOLUS OF LACTATED RINGERS, THE PATIENT STARTED COUGHING AND SAID IT FELT LIKE THE FLUID WAS BUILDING UP IN HER THROAT. REPORTED HEARING CRACKLES IN THE PATIENT'S RIGHT LUNG. DR BOOTH SAID TO STOP THE FLUIDS. 0235 REPORTED PATIENT'S CURRENT VITALS TO DR BOOTH. DISCUSSED THAT THE PATIENT IS ASYMPTOMATIC. DR BOOTH SAID TO PUT THE PATIENT BACK ON MAINTENANCE FLUIDS OF NS AT 100 ML/HR X1 AND TO PLACE COMPRESSION STOCKINGS ON PATIENT.
--- NOTE | 2021-11-14 18:36 | NUR ---
NO ACUTE CHANGES PT AOX4. PT CONTINUES TO HAVE FEVER SPIKES AND WAS UP TO 103 AND WAS TREATED PER EMAR AND ICE. THIS SEEMS EFFECTIVE AT THIS TIME. PT ALSO CONTINUES TO HAVE INCREASED HR UP TO 150s. DR JADE ADDED MEDICAITON TO EMAR AND HR HAS NOW BEEN 120-130. PT HAS CALL LIGHT WITHIN REACH WILL CONTINUE TO MONITOR.
--- NOTE | 2021-11-15 05:45 | NUR ---
SHIFT SUMMARY PATIENT ALERT AND ORIENTED. MEDICATED PER EMAR WITH PRN CARDIZEM AND LOPRESSOR FOR HIGH HEART RATE. MEDICATED PER EMAR FOR FEVER. BOTH ISSUES RESOLVED OF NOW. WILL CONTINUE TO MONITOR.NO OTHER ISSUES NOTED OVERNIGHT. CALL LIGHT WITHIN REACH. REPORT GIVEN TO ONCOMING RN.
[2021-11-15 09:04] LABS: Hematocrit 21.9 % (33.0-51.0); Hemoglobin 7.3 g/dL (11.5-16.0); Mean Corpuscular HGB 31.2 pg (26.0-34.0); Mean Corpuscular HGB Conc 33.3 g/dL (31.5-36.5); Mean Corpuscular Volume 94 fL (80-100); Mean Platelet Volume 11.8 fL (9.1-12.4); RDW Coefficient Variation 15.1 % (11.7-14.2); RDW Standard Deviation 50.5 fL (35.1-46.3); Red Blood Cell Count 2.34 M/mm3 (3.80-5.20)
[2021-11-15 09:18] LABS: Bun/Creatinine Ratio 37.5 (12.0-20.0); Calcium, Blood 8.3 mg/dL (8.5-10.1); Creatinine, Blood 0.59 mg/dL (0.40-1.00); Platelet Count 17 K/mm3 (150-400); Potassium, Blood 3.9 mmol/L (3.5-5.5); White Blood Cell Count 0.13 K/mm3 (4.00-11.30)
[2021-11-15 09:38] LABS: BASOPHILS PERCENT MAN 0 % (0-2); EOSINOPHILS PERCENT MAN 0 % (0-6); LYMPHOCYTES % ATYPICAL MANUAL 12 % (0-0); LYMPHOCYTES ABSOLUTE MAN 0.12 K/mm3 (0.84-5.20); LYMPHOCYTES PERCENT MAN 84 % (21-46); MONOCYTES PERCENT MAN 0 % (4-13); SEG NEUTROPHILS PERCENT MAN 4 % (41-73); TOTAL CELLS COUNTED 25
--- NOTE | 2021-11-15 18:25 | NUR ---
PATIENT IS ALERT AND ORIENTED AND COOPERATIVE WITH CARE. C/O SOB THIS AFTERNOON THAT RESOLVED WITHIN A FEW SECONDS AND ON ITS OWN. SHE DOES GET REALLY TIRED WHEN TRANSFERRING FROM BED TO BSC. HR WAS CONTROLLED TODAY. HIGHEST HR BEING 118 BPM AND LOWEST AT 104 BPM. FAMILY HAS BEEN AT THE BEDSIDE. WILL CONTINUE TO MONITOR
[2021-11-16 05:19] LABS: Hemoglobin 6.6 g/dL (11.5-16.0); Mean Corpuscular HGB 30.7 pg (26.0-34.0); Mean Corpuscular Volume 93 fL (80-100); Red Blood Cell Count 2.15 M/mm3 (3.80-5.20)
[2021-11-16 05:45] LABS: Platelet Count 12 K/mm3 (150-400); White Blood Cell Count 0.17 K/mm3 (4.00-11.30)
[2021-11-16 05:51] LABS: Albumin, Blood 1.5 g/dL (3.4-5.0); Anion Gap 8 mmol/L (6-16); Blood Urea Nitrogen 24 mg/dL (8-24); Bun/Creatinine Ratio 41.5 (12.0-20.0); CO2, Blood 22 mmol/L (21-32); Calcium, Blood 8.2 mg/dL (8.5-10.1); Chloride, Blood 103 mmol/L (98-108); Creatinine, Blood 0.58 mg/dL (0.40-1.00); Glomerular Filtration Rate 94 (60-); Glucose, Blood 111 mg/dL (70-99); Potassium, Blood 3.8 mmol/L (3.5-5.5); Sodium, Blood 133 mmol/L (136-145)
[2021-11-16 05:55] LABS: BASOPHILS PERCENT MAN 0 % (0-2); EOSINOPHILS PERCENT MAN 0 % (0-6); LYMPHOCYTES % ATYPICAL MANUAL 9 % (0-0); LYMPHOCYTES ABSOLUTE MAN 0.15 K/mm3 (0.84-5.20); LYMPHOCYTES PERCENT MAN 83 % (21-46); MONOCYTES PERCENT MAN 4 % (4-13); SEG NEUTROPHILS PERCENT MAN 4 % (41-73); TOTAL CELLS COUNTED 23
--- NOTE | 2021-11-16 06:22 | NUR ---
SHIFT SUMMARY PATIENT ALERT AND ORIENTED. PATIENT'S HEART RATE TRENDING UPWARD AGAIN, MEDICATED PER EMAR WITH IV LOPRESSOR TWICE. PATIENT ALSO HAD A FEVER OVERNIGHT. MEDICATED WITH TYLENOL AND ICE PACKS PLACED UNDER ARMS. NO COMPLAINTS OF PAIN OR SHORTNESS OF BREATH. CALL LIGHT WITHIN REACH. REPORT GIVEN TO ONCOMING RN.
[2021-11-16] MEDS ORDERED: METO50 PO (06:44)
--- NOTE | 2021-11-16 11:23 | NUR ---
ASSUMED CARE OF PT AT 1115. PT'S FAMILY IS PRESENT. PT HAS BLOOD TRANSFUSING. VS; 103/50 WITH MAP OF 67, TEMP OF 99.7, RR 18, 02 95% 2 L NC, HR 134. PT RESTING BUT OPENS EYES TO SOUNDS AND INTERACTS WITH STAFF. PT SETTLED AND ORIENTED TO ROOM. CALL LIGHT WITHIN REACH AND BED IN LOWEST POSITION
--- NOTE | 2021-11-16 18:41 | NUR ---
SHIFT SUMMARY PT TRANSFERRED FROM MEDICAL FLOOR AT 1115. PT ARRIVED AND APPEARED TO BE RESTING WITH EYES CLOSED BUT OPENED EYES TO SOUND. PT WAS ABLE TO RESPOND TO QUESTIONS AND WAS INTERACTING WITH THIS RN. PT WAS RECIEVING BLOOD TRANSFUSION UPON ARRIVAL. VS TAKEN, SEE CHART. PT FEBRILE THROUGHOUT SHIFT WITH TEMPERTURE OF 100.7. MEDICATED PER EMAR, REASSESSMENT TEMPERATURE WAS 98.9. PT SEEMS WITHDRAWN AND AFFECT IS FLAT, BUT PT OCCASSIONALLY SMILES AND JOKES WITH THIS RN. PT ATE SOME OF HER LUNCH AND DINNER. PT STARTED ON DILTIAZEM GTT TO MAINTAIN HR. DUE TO PT SBP AND HR, GTT CURRENTLY STOPPED. PO METOPROLOL GIVEN PER EMAR. BUTT IN PLACE AND DRAINING TO GRAVITY; DARK, YELLOW URINE. PT UP IN BED AND WATCHING TV, FAMILY AT BEDSIDE. CALL LIGHT WITHIN REACH AND BED IN LOWEST POSITION
[2021-11-17 01:14] LABS: Hematocrit 20.7 % (33.0-51.0); Mean Corpuscular HGB 31.4 pg (26.0-34.0); Mean Corpuscular HGB Conc 33.8 g/dL (31.5-36.5); Mean Corpuscular Volume 93 fL (80-100); RDW Coefficient Variation 14.6 % (11.7-14.2); RDW Standard Deviation 49.3 fL (35.1-46.3); Red Blood Cell Count 2.23 M/mm3 (3.80-5.20)
[2021-11-17 01:17] LABS: BASOPHILS PERCENT AUTO 0 % (0-2); EOSINOPHILS PERCENT AUTO 0 % (0-6); IMMATURE GRAN PERCENT AUTO 0 % (0-1); LYMPHOCYTES ABSOLUTE AUTO 0.11 K/mm3 (0.84-5.20); LYMPHOCYTES PERCENT AUTO 79 % (21-46); MONOCYTES ABSOLUTE AUTO 0.01 K/mm3 (0.16-1.47); MONOCYTES PERCENT AUTO 7 % (4-13); NEUTROPHILS ABSOLUTE AUTO 0.02 K/mm3 (1.96-9.15); NEUTROPHILS PERCENT AUTO 14 % (41-73)
[2021-11-17 01:18] LABS: Platelet Count 9 K/mm3 (150-400); White Blood Cell Count 0.14 K/mm3 (4.00-11.30)
[2021-11-17 01:30] LABS: Albumin, Blood 1.3 g/dL (3.4-5.0); Albumin/Globulin Ratio 0.4 (0.8-1.8); Bilirubin, Total 1.5 mg/dL (0.1-1.0); Bun/Creatinine Ratio 36.5 (12.0-20.0); Calcium, Blood 7.8 mg/dL (8.5-10.1); Creatinine, Blood 0.58 mg/dL (0.40-1.00); Globulin, Blood 3.5 g/dL (2.2-4.0); Phosphorus, Blood 2.7 mg/dL (2.5-4.9); Potassium, Blood 3.9 mmol/L (3.5-5.5); Total Protein, Blood 4.8 g/dL (6.4-8.2)
--- NOTE | 2021-11-17 04:57 | NUR ---
PER TELE AT 0156 PT CONVERTED TO SINUS TACH. RATE LOW 100'S.
--- NOTE | 2021-11-17 08:01 | NUR ---
SHIFT SUMMARY PT AOX4, LETHARGIC LAYING BACK IN BED AT START OF SHIFT. PT TACHYPNEIC, SKIN COLOR IS DUSKY AND PALISH-YELLOW IN APPEARANCE. RR 30-34. AFIB IN LOW 100'S-110'S. PT CONVERTED TO ST IN LOW 100'S AT AROUND 0156. PT DENIED ANY CP T/O SHIFT. BLE PITTING EDEMA 2+. PT HAD CRACKLES IN BASES OF LUNGS THAT SEEMED TO WORSEN SOMEWHAT FOLLOWING DOSE OF 500 ML BOLUS OF LR FOR HYPOTENSION W/SBP IN 70'S. DOSE OF MIDODRINE 5 MG PO INCREASED BP TO 118-119 SYSTOLIC. PRESSURE CAME BACK DOWN T/O SHIFT. MAP MAINTAINED BORDERLINE 60'S-70'S. DBP 40'S-60'S. PT HAD LITTL URINE OUTPUT T/O SHIFT. LITTLE OVER 100 MLS. THIS RN CALLED RESIDENT AT START OF SHIFT FOR ORDERS FOR HYPOTENSION. CALLED DR LOMBARDO BACK AFTER RESULTS OF 7 HGB AND 9 PLATELETS AND CONCERN FOR PT'S NEED FOR BLOOD/WORSENING FLUID OVERLOAD/POOR URINE OUTPUT/HYPOTENSION. NO FURTHER ORDERS THIS AM. THIS RN CONTINUED MONITORING PT. SOME HYPOTENSION WITH MAP 58-66. SR 100-110'S, LOW GRADE FEVER CONTINUED 99.6F. PT DENIED PAIN. TACHYPNEIC 32-34 BPM. SATS 92-95% ON 3 L VIA NC.
--- NOTE | 2021-11-17 12:52 | NUR ---
AM NOTE: PATIENT ALERT AND ORIENTED X4. VERY LETHARGIC AND WEAK. SLOW TO ANSWER. PERRLA. ABLE TO TRANSFER TO [facility] [place] WITH ONE PERSON ASSIST. DENIES NUMBNESS/TINGLING. DENIES PAIN. TELE SHOWING SINUS RHYTHM WITH HR 90'S. BP STABLE AND HOLDING THROUGHOUT AFTERNOON. DENIES CHEST PAIN/PRESSURE. 2+ EDEMA TO BLE. ON 3L O2 VIA NASAL CANNULA SATING MID 90'S. PATIENT SOUNDING COARSE WITH CRACKLES THROUGHOUT. RESPIRATORY RATE INCREASED THIS AM WITH WET SOUNDING COUGH. THIS RN CONCERNED WITH RESPIRATORY DISTRESS/FLUID OVERLOAD AND PLACED CALL TO DR. MILLER. DR. MILLER IN TO ASSESS. LASIX ORDERED AND GIVEN. PATIENT SEEMS TO BE MORE COMFORTABLE ALTHOUGH CRACKLES AND COARSENESS STILL HEARD THROUGHOUT. WILL CONTINUE TO ASSESS RESPIRATORY STATUS. 1 UNIT OF PLATELETS GIVEN. BUTT CATH IN PLACE DRAINING DARK JAYY URINE, MORE CLEAR AFTER LASIX WAS GIVEN. MODERATE BROWN BM THIS AM. DENIES ABDOMINAL PAIN/NAUSEA. SLEEPING AT THIS TIME. CALL LIGHT IN REACH. WILL CONTINUE TO MONITOR. FAMILY AT BEDSIDE.
--- NOTE | 2021-11-17 16:24 | NUR ---
RESPIRATORY DISTRESS THIS AFTERNOON. CRACKLES AND COARSENESS REMAIN PRESENT. RR MID 20'S. WET SOUNDING COUGH AND PATIENT STATES SHE IS HAVING A DIFFICULT TIME BREATHING. HR SUSTAINING 130'S. BP STABLE. ELEVATED TEMP. CALL PLACED TO DR. MILLER. ORDERS TO GIVE LASIX EARLY. LASIX GIVEN WELL TYLENOL FOR TEMP. BLANKETS REMOVED AND TEMP TURNED DOWN. WILL CONTINUE TO MONITOR
--- NOTE | 2021-11-17 18:12 | NUR ---
SHIFT SUMMARY: PATIENT RESPIRATORY STATUS IMPROVED SINCE LAST LASIX DOSE. 800 UO FROM CATHETER. HR STILL ELEVATED IN 130-140'S CONVERTED TO AFIB WHEN UP TO BEDSIDE COMMODE AROUND 173. PO DOSE OF METOPROLOL GIVEN PER EMAR. BP REMAINS STABLE. WILL CONTINUE TO MONITOR HR/BP. DENIES PAIN/NEEDS AT THIS TIME. ON 2L NASAL CANNULA SATING MID 90'S. DENIES ABDOMINAL PAIN/NAUSEA EATING VERY SMALL AMOUNTS. CALL LIGHT IN REACH. SON AT BEDSIDE. WILL CONTINUE TO MONITOR. CALL PLACED TO DR. MILLER TO DISCUSS AFIB CONVERSION AT 1738, ORDERS TO GIVE 11/17 EVENING PO METOPROLOL DOSE ONE HOUR TO TAKE AFFECT, IF HR IS STILL ELEVATED AFTER ONE HOUR OF ADMIN, TO THEN RESTART CARDIZEM DRIP. SEE NURSE NOTIFY ORDER. HR AT THIS TIME SUSTAINING 120'S. WILL CONTINUE TO MONITOR AND REPORT OFF TO ONCOMING RN.
--- NOTE | 2021-11-18 02:43 | NUR ---
0200 HRS: PT CALLED C/O INCREASED COUGH AND SOB. PT ASSESSED AND FOUND TO HAVE INCREASED CRACKLES T/O AND INCREASED BODY EDEMA. DR LESTER CONTACTED BY CHARGE NURSE Christopher GLEZ AND PARUL WHITE ORDERED. WCNICKO.
[2021-11-18 03:40] LABS: Hematocrit 19.4 % (33.0-51.0); Hemoglobin 6.5 g/dL (11.5-16.0); Mean Corpuscular HGB Conc 33.5 g/dL (31.5-36.5); Mean Corpuscular Volume 96 fL (80-100); Mean Platelet Volume 12.5 fL (9.1-12.4); NRBC ABSOLUTE 0.02 K/mm3 (0.00-0.02); RDW Coefficient Variation 14.6 % (11.7-14.2); RDW Standard Deviation 50.4 fL (35.1-46.3); Red Blood Cell Count 2.03 M/mm3 (3.80-5.20)
[2021-11-18 03:57] LABS: Platelet Count 10 K/mm3 (150-400)
[2021-11-18 03:58] LABS: BASOPHILS PERCENT AUTO 0 % (0-2); EOSINOPHILS PERCENT AUTO 0 % (0-6); IMMATURE GRAN PERCENT AUTO 0 % (0-1); LYMPHOCYTES PERCENT AUTO 83 % (21-46); MONOCYTES PERCENT AUTO 8 % (4-13); NEUTROPHILS PERCENT AUTO 8 % (41-73)
[2021-11-18 03:59] LABS: MONOCYTES ABSOLUTE AUTO 0.01 K/mm3 (0.16-1.47); NEUTROPHILS ABSOLUTE AUTO 0.01 K/mm3 (1.96-9.15); NRBC Auto 16.7 /100 WBC (0.0-0.2)
[2021-11-18 04:06] LABS: Albumin, Blood 1.5 g/dL (3.4-5.0); Anion Gap 9 mmol/L (6-16); Blood Urea Nitrogen 26 mg/dL (8-24); Bun/Creatinine Ratio 38.5 (12.0-20.0); CO2, Blood 27 mmol/L (21-32); Calcium, Blood 7.9 mg/dL (8.5-10.1); Chloride, Blood 98 mmol/L (98-108); Creatinine, Blood 0.68 mg/dL (0.40-1.00); Glomerular Filtration Rate 91 (60-); Glucose, Blood 113 mg/dL (70-99); Potassium, Blood 3.2 mmol/L (3.5-5.5); Sodium, Blood 134 mmol/L (136-145)
--- NOTE | 2021-11-18 04:39 | NUR ---
DISCUSSED PT HGB, PLATELET COUNT, AND WBC W/ DR. SAM. PROVIDER ORDERED 1 UNIT RBC VIA TELEPHONE.
--- NOTE | 2021-11-18 05:10 | NUR ---
SHIFT SUMMARY: PT REMAINS ON CARDIZEM DRIP. PT HR HAS DECREASED INTO 100'S AND BP HAS IMPROVED. PT WAS FOUND W/ INCREASED COUGH AND CRACKLES T/O. CHARGE NURSE Christopher GLEZ CONTACTED DR. SAM AND OT ORDER OF LASIX RECEIVED. BREATHING AND COUGHING IMPROVED. PT HGB DECREASED. DR. SAM WAS CONTACTED AND 1 UNIT OF PRBC WAS ORDERED. CURRENTLY AWAITING BLOOD PRODUCTS. PT RESTING COMFORTABLY AND IN NO DISTRESS. CALL LIGHT WITHIN REACH. WILL PASS ON TO DAY SHIFT AND WCTM.
--- NOTE | 2021-11-18 08:12 | NUR ---
INITIAL ASSESSMENT PATIENT VERY LETHARGIC. PATIENT ORIENTED X 4. PATIENT HAS TEMP OF 99.8 DEGREES FAHRENHEIT. PATIENT DENIES PAIN. PATIENT SLOW TO RESPOND. PATIENT FLAT AND WITHDRAWN. PATIENT WEAK BUT ABLE TO MOVE ALL EXTREMITIES. PATIENT SATTING 90% AND GREATER ON 3 L NC. LUNGS CLEAR IN UPPER LOBES AND COARSE IN LOWER LOBES. PATIENT HAS MOIST, NONPRODUCTIVE COUGH. PATIENT IN A. FIB, HR IN THE 90S. SBP IN THE 90S. SCDS IN PLACE. 2+ EDEMA NOTED IN BLES. GI WNL. BUTT IN PLACE DRAINING DARK JAYY COLORED URINE. PATIENT RECEIVING SCHEDULED LASIX. SKIN PALE AND FRAGILE. L BUTTOCK WOUND NOTED; MEPILEX IN PLACE. SCATTERED BRUISES NOTED, INCLUDING MEDIUM SIZE BRUISE TO R UPPER BACK. DILTIAZEM INFUSING AT 15 MG/ HOUR. PATIENT RECEIVING PRBCS. BED LOW, CALL LIGHT IN REACH. SON AT BEDSIDE. WILL CONTINUE TO MONITOR.
--- NOTE | 2021-11-18 12:54 | NUR ---
PATIENT HAS TEMP OF 99.6 DEGREES FAHRENHEIT. HR 103. SBP IN THE 90S. CARDIZEM DRIP PLACED ON SB FOR SOFT BP. O2 DECREASED FROM 3 L NC TO 2 L NC AND PATIENT REMAINS SATTING 90% AND GREATER. NO OTHER ACUTE CHANGES TO NOTE ON AT THIS TIME. NO COMPLAINTS FROM PATIENT. WILL CONTINUE TO MONITOR.
--- NOTE | 2021-11-18 14:27 | NUR ---
DR. COREY UPDATED ON PATIENT STATUS. INFORMED THAT PATIENT ON CARDIZEM AT 20 MG/ HOUR WHEN VAME ON SHIFT. INFORMED THAT CARDIZEM DRIP IS NOW ON SB FOR CONTINUED SOFT BPS. INFORMED THAT MAPS HAVE BEEN 60 TO 63. INFORMED THAT AM METOPROLOL HELD FOR SOFT BP. INFORMED THAT PATIENT RECEIVED LASIX ON ENERGY RISK MANAGEMENT ANALYST FOR COARSENESS IN LUNGS. INFORMED THAT PATIENT RECEIVED SCHEDULED LASIX THIS AM. INFORMED THAT PATIENT RECEIVED 1 UNIT PRBC FOR HEMOGLOBIN OF 6.5. INFORMED THAT POTASSIUM 3.2 THIS AM AND THIS NURSE DOES NOT SEE WHERE ANY REPLACEMENT WAS GIVEN. INFORMED THAT PATIENT HAS HAD FEVER ALL DAY. ORDER RECIEVED FOR PO POTASSIUM AND FOR PHYSICAL THERAPY. NO OTHER ORDERS RECEIVED AT THIS TIME.
--- NOTE | 2021-11-18 16:00 | NUR ---
PATIENT HAS TEMP OF 100.9 DEGREES FAHRENHEIT. HR AT 100. BP 99/43 WITH MAP OF 61. NO COMPLAINTS AT THIS TIME. NO ACUTE CHANGES TO NOTE ON. WILL CONTINUE TO MONITOR.
--- NOTE | 2021-11-18 18:50 | NUR ---
SHIFT SUMMARY PATIENT SLEPT MOST OF THE SHIFT. PATIENT REMAINED LETHARGIC. PATIENT REMAINED ALERT AND ORIENTED X 4. PATIENT 1 TO 2 PERSON ASSIST. PATIENT HAD TMAX OF 100.9 DEGREES FAHRENHEIT. PATIENT DECREASED FROM 3 L NC TO 2 L NC. PATIENT CONTINUED TO HAVE MOIST, NONPRODUCTIVE COUGH. PATIENT REMAINED IN A. FIB, HR 90S TO LOW 100S. SBP 90S TO LOW 100S. SMALL BM THIS AM. PATIENT CONTINUED TO HAVE POOR APPETITE. PATIENT HAD 1000 MLS OF ORANGE/ DARK JAYY URINE FROM BUTT. PATIENT CONTINUED TO RECEIVE SCHEDULED LASIX. NO CHANGES TO SKIN NOTED. PATIENT REPOSITIONED THROUGHOUT SHIFT. DILTIAZEM DRIP AT 20 MG/ HR THIS AM AND PLACED ON SB TODAY. PATIENT RECEIVED 1 UNIT OF RBCS THIS SHIFT. PATIENT RECEIVED 20 MEQ PO KCL FOR POTASSIUM OF 3.2 THIS AM. PATIENT REFUSED BED BATH. PATIENT WORKED WITH PT THIS SHIFT. NO COMPLAINTS AT THIS TIME. BED LOW, CALL LIGHT IN REACH. SONS HAVE BEEN IN MOST OF DAY. REPORT WILL BE GIVEN TO ASSUMING MANAGER HEMATOLOGY NURSE SHORTLY.
[2021-11-19 04:17] LABS: Hematocrit 25.3 % (33.0-51.0); Hemoglobin 8.9 g/dL (11.5-16.0); Mean Corpuscular HGB 31.7 pg (26.0-34.0); Mean Corpuscular HGB Conc 35.2 g/dL (31.5-36.5); RDW Coefficient Variation 15.9 % (11.7-14.2); Red Blood Cell Count 2.81 M/mm3 (3.80-5.20)
[2021-11-19 04:19] LABS: Mean Corpuscular Volume 90 fL (80-100); Platelet Count 5 K/mm3 (150-400)
[2021-11-19 04:23] LABS: White Blood Cell Count 0.09 K/mm3 (4.00-11.30)
[2021-11-19 04:26] LABS: Albumin, Blood 1.3 g/dL (3.4-5.0); Anion Gap 6 mmol/L (6-16); Blood Urea Nitrogen 30 mg/dL (8-24); Bun/Creatinine Ratio 36.5 (12.0-20.0); CO2, Blood 30 mmol/L (21-32); Calcium, Blood 7.8 mg/dL (8.5-10.1); Chloride, Blood 98 mmol/L (98-108); Creatinine, Blood 0.82 mg/dL (0.40-1.00); Glomerular Filtration Rate 75 (60-); Glucose, Blood 126 mg/dL (70-99); Phosphorus, Blood 2.6 mg/dL (2.5-4.9); Potassium, Blood 2.9 mmol/L (3.5-5.5); Sodium, Blood 134 mmol/L (136-145)
--- NOTE | 2021-11-19 04:42 | NUR ---
CALLED DR FREEDMAN REGARDING CRITICAL LABS OF WBC 0.09 AND PLT 5. ALSO NOTIFIED OF K+ OF 2.9. DR FREEDMAN WILL BE PUTTING IN FURTHER ORDERS.
--- NOTE | 2021-11-19 07:13 | NUR ---
SHIFT SUMMARY PT IS ALERT AND ORIENTED. SHE HAS BEEN LETHARGIC T/O MOST OF THE SHIFT. SHE IS AROUSABLE WITH VERBAL STIMULI. SHE WILL USE THE CALL LIGHT IF NEEDED. VITALS HAVE BEEN STABLE AND HR WAS BEEN 70-130'S. SHE IS ON 3L NC WITH SATS ABOVE 92%. SHE HAS NOT REPORTED SOB. PT DID RECEIVED PLT THIS AM AND BP BECAME SOFT. SHE DENIES FEELING SOB. BUTT IN PLACE AND DRAINING TO GRAVITY. CALL LIGHT IS WITHIN REACH.
--- NOTE | 2021-11-19 18:08 | NUR ---
SHIFT SUMMARY PT HAS BEEN RESTING IN ROOM, SLEEPING OFF AND ON. DURING INITIAL ASSESSMENT, THEY WERE CONVERSATIONAL AND ENGAGED WITH THIS RN. THE DAY PROGRESSED THEY BECAME MORE WITHDRAWN AND APATHETIC AND WOULD NOT ENGAGE IN CONVERSATION. SBP HAS REMAINED IN THE 100 RANGE. HEART RATE HAS REMAINED ELEVATED, AVERAGING 140 THIS PM.
[2021-11-20 04:00] LABS: Hematocrit 20.5 % (33.0-51.0); Hemoglobin 7.1 g/dL (11.5-16.0); Mean Corpuscular HGB 31.8 pg (26.0-34.0); Mean Corpuscular HGB Conc 34.6 g/dL (31.5-36.5); Mean Corpuscular Volume 92 fL (80-100); Mean Platelet Volume 11.4 fL (9.1-12.4); RDW Coefficient Variation 15.8 % (11.7-14.2); RDW Standard Deviation 53.1 fL (35.1-46.3); Red Blood Cell Count 2.23 M/mm3 (3.80-5.20)
[2021-11-20 04:03] LABS: BASOPHILS PERCENT AUTO 0 % (0-2); EOSINOPHILS PERCENT AUTO 0 % (0-6); IMMATURE GRAN PERCENT AUTO 0 % (0-1); LYMPHOCYTES PERCENT AUTO 83 % (21-46); MONOCYTES ABSOLUTE AUTO 0.01 K/mm3 (0.16-1.47); MONOCYTES PERCENT AUTO 8 % (4-13); NEUTROPHILS ABSOLUTE AUTO 0.01 K/mm3 (1.96-9.15); NEUTROPHILS PERCENT AUTO 8 % (41-73)
[2021-11-20 04:04] LABS: Platelet Count 14 K/mm3 (150-400); White Blood Cell Count 0.12 K/mm3 (4.00-11.30)
[2021-11-20 04:20] LABS: Albumin, Blood 1.3 g/dL (3.4-5.0); Anion Gap 3 mmol/L (6-16); Blood Urea Nitrogen 30 mg/dL (8-24); Bun/Creatinine Ratio 38.6 (12.0-20.0); CO2, Blood 34 mmol/L (21-32); Calcium, Blood 7.8 mg/dL (8.5-10.1); Chloride, Blood 99 mmol/L (98-108); Creatinine, Blood 0.78 mg/dL (0.40-1.00); Glomerular Filtration Rate 79 (60-); Glucose, Blood 114 mg/dL (70-99); Phosphorus, Blood 2.7 mg/dL (2.5-4.9); Potassium, Blood 3.3 mmol/L (3.5-5.5); Sodium, Blood 136 mmol/L (136-145)
--- NOTE | 2021-11-20 04:57 | NUR ---
CALLED DR FREEDMAN REGARDING HGB OF 7.1 FROM 8.0. NO FUTHER ORDERS WERE GIVEN.
--- NOTE | 2021-11-20 05:35 | NUR ---
SHIFT SUMMARY PT IS ALERT AND ORIENTED. PT DENIES CHEST PAIN/PRESSURE. VITALS ARE STABLE AND SHE IS CURRENTLY ON 2L NC WITH SATS ABOVE 90%. THERE HAVE BEEN NO ACUTE CHANGES T/O THE NIGHT. NOTED THAT PT IS STRUGGLING WHEN SWALLOWING PO MEDS AND WAS OFFERED TO TAKE MEDS WITH APPLESAUCE BUT REFUSED. PT HAS NOT BEEN OUT OF BED THIS SHIFT AND HAS BEEN RESPOSITIONED TO COMFORT. BUTT IS IN PLACE AND DRAINING TO GRAVITY. PLT AND WBC HAVE IMPROVED. HGB DID DECREASE AND WAS REPORTED TO DR FREEDMAN. CALL LIGHT IS WITHIN REACH.
--- NOTE | 2021-11-20 08:00 | NUR ---
ASSUMED CARE NOTE: ASSUMED CARE OF PT AT 0700. PT RESPONDING TO VERBAL STIMULI. PT IS VERY WEAK AND SLOW TO RESPOND. HOWEVER SHE IS ABLE TO REMAIN ALERT TO EAT/DRINK SAFELY. PT DENIES ANY PAIN AT THIS TIME. PT IS ON 2 L OF O2 VIA NC WITH SPO2 ABOVE 90%, PT BECOMES SOB WITH ACTIVITY. PT ON CARDIAC MONITORING, CURRENTLY IN AFIB WITH HR IN THE 120'S. HYPOACTIVE BOWEL TONES NOTED TO ALL QUADRANTS, PT DENIES TENDERNESS. BUTT PATENT, DRAINING JAYY COLORED URINE TO GRAVITY. WILL CONTINUE TO MONITOR PT T/O SHIFT.
--- NOTE | 2021-11-20 11:55 | NUR ---
HR IN THE 140-150'S, 5MG OF IV METOPROLOL GIVEN OVER 2 MIN. HR CAME DOWN TO 105-120, BP STABLE, WILL CONTINUE TO MONITOR.
--- NOTE | 2021-11-20 14:54 | NUR ---
UPDATE: CALLED REGARDING PT'S HR. WILL START CARDIZEM DRIP TO [employer] HR LESS THAN 110.
--- NOTE | 2021-11-20 16:28 | NUR ---
UPDATE: HR 140'S, CARDIZEM AT 15MG/HR. TEMP 102.7, ACETAMINOPHEN GIVEN PER ORDER, ICE PACKS APPLIED , BLANKETS REMOVED, COOL WASH CLOTH APPLIED.
--- NOTE | 2021-11-20 18:04 | NUR ---
SHIFT SUMMARY: SEE PREVIOUS NOTES. PT CONTINUES TO RESPOND TO VERBAL STIMULI. PT HAS A FLAT AFFECT AND WILL NOT ENGAGE IN CARE PLANNING. PT IS ABLE TO STAY ALERT FOR MEALS AND MEDICATION ADMINISTRATION. PT HAS DENIED PAIN T/O SHIFT. TMAX 102.7, MEDICATION GIVEN PER MAY, TEMP DECREASED TO 99.7. PT CONTINUES TO BE IN AFIB WITH HR BETWEEN 115-130'S, (DECREASE FROM 150'S, EARLIER IN THE SHIFT). PT PLACED BREIFLY ON CARDIZEM DRIP, HAD TO PLACE ON SB DUE TO SOFT BLOOD PRESSURES. CALLED AT 1725, HELD PO CARDIZEM AND LASIX FOR TONIGHT, WILL NOT TREAT LOW BP AT THIS TIME, DUE TO PT'S FRAGILE STATE, WILL CONTINUE TO MONITOR, Q15 BP BEING OBTAINED. PT CONTINUES TO BE ON 2L OF O2 VIA NC WITH SPO2 ABOVE 90% PT CONTINUES TO HAVE POOR APPETITE, NO BM THIS SHIFT. BUTT PATENT, DRAINING TO GRAVITY, 1500ML OF JAYY COLOR URINE OBTAINED FOR THE SHIFT. PT REPOSITIONED Q2HRS, BEDBATH GIVEN, LINEN CHANGED. WILL CONTINUE TO MONITOR PT UNTIL REPORT IS GIVEN TO ONCOMING SHIFT.
--- NOTE | 2021-11-20 21:10 | NUR ---
UPDATE PT IS FEELING ANXIOUS. SHE ASKED THIS NURSE TO LOCATE SON "KINA." PT STATED THAT HE HAS NOT VISITED IN DAYS AND THINKS SOMETHING IS WRONG. SHE ASKED THIS NUSE TO CALL HIM AND HAVE HIM CALL HER. THIS NURSE WAS UNABLE TO LOCATE PHONE NUMBER AND ASKED PT IS SHE WOULD LIKE TO TALK TO SON "SHY" OR . SHE THEN TALKED ABOUT HER CHECK BOOK AND PURSE BEING IN SISTERS POSSESSION AND STATED SHE WAS CONFUSED. SHE THEN ASKED THIS NURSE TO CALL SHY SO THAT SHE COULD TALK TO HIM. DIALED SHY FROM THE ROOM PHONE AND GAVE PT PRIVACY. ASKED PT TO USE CALL LIGHT IF NEEDING ASSISTANCE.
--- NOTE | 2021-11-20 21:33 | NUR ---
CALLED DR DUBNO HAS VOICED TO THIS NURSE THAT SHE IS FELING VERY ANXIOUS AND STATED THAT SHE HAS BEEN USING ATIVAN AT HOME. CALLED DR. FREEDMAN REGARDING HR AND PT'S ANXIETY. DR FREEDMAN GAVE ORDER OF ATIVAN PO 1MG. ORDER ENTERED INTO EMAR.
--- NOTE | 2021-11-21 00:10 | NUR ---
UPDATE INCREASED DILT GTT TO 10. BP 116/70 HR 140-150.
--- NOTE | 2021-11-21 00:38 | NUR ---
UPDATE INCREASED DILT GTT TO 15. BP 112/61 (76) HR 138.
--- NOTE | 2021-11-21 00:54 | NUR ---
CALLED DR CALLED DR FREEDMAN REGARDING PT'S HR 130-150'S DESPITE NOW BEING ON DILT GTT OF RATE 15. NOTIFIED THAT PO DILT WAS NOT GIVEN AT [address] BP[address] FREEDMAN ORDERED TO GIVE THAT ONE TIME DOSE AND LOPRESSOR INJ PER EMAR.
--- NOTE | 2021-11-21 03:00 | NUR ---
PUT CARDIZEM ON STANDBY PT HYPOTENSIVE. BP 94/47, HR 108.
--- NOTE | 2021-11-21 03:07 | NUR ---
CALLED DR TRINA FREEDMAN REGARDING PT'S BP BEING SOFT WITH MAP <65 SYSTOLICS IN THE 90'S. HR IN THE 110'S PT. DR FREEDMAN WILL PUT IN ADDITIONAL ORDERS.
--- NOTE | 2021-11-21 04:16 | NUR ---
UPDATE WHEN DOING PT CARE THIS AM PT VOICED TO THIS NURSE "I WILL BE IN ANOTHER WORLD WHEN I WAKE UP." SHE THEN SAID SHE WAS VERY TIRED. THIS NURSE ASKED IF SHE WAS TIRED OF FIGHTING PT NODDED YES. PT THEN SAID "THERE IS A BOY AT THE BOTTOM OF THE HILL AND HE FELL OFF HIS HORSE" I THINK HE WAS RIDING IT." PT HAS VOICED SEVERAL TIMES T/O THE SHIFT THAT SHE WAS TOO WEAK AND TIRED.
[2021-11-21 04:19] LABS: Hematocrit 19.4 % (33.0-51.0); Hemoglobin 6.7 g/dL (11.5-16.0); Mean Corpuscular HGB 31.8 pg (26.0-34.0); Mean Corpuscular HGB Conc 34.5 g/dL (31.5-36.5); Mean Corpuscular Volume 92 fL (80-100); RDW Coefficient Variation 15.2 % (11.7-14.2); Red Blood Cell Count 2.11 M/mm3 (3.80-5.20)
[2021-11-21 04:30] LABS: BASOPHILS PERCENT AUTO 0 % (0-2); EOSINOPHILS PERCENT AUTO 0 % (0-6); IMMATURE GRAN PERCENT AUTO 0 % (0-1); LYMPHOCYTES ABSOLUTE AUTO 0.09 K/mm3 (0.84-5.20); LYMPHOCYTES PERCENT AUTO 82 % (21-46); MONOCYTES ABSOLUTE AUTO 0.01 K/mm3 (0.16-1.47); MONOCYTES PERCENT AUTO 9 % (4-13); NEUTROPHILS ABSOLUTE AUTO 0.01 K/mm3 (1.96-9.15); NEUTROPHILS PERCENT AUTO 9 % (41-73); Platelet Count 3 K/mm3 (150-400)
[2021-11-21 04:31] LABS: White Blood Cell Count 0.11 K/mm3 (4.00-11.30)
[2021-11-21 04:42] LABS: Bun/Creatinine Ratio 45.6 (12.0-20.0); Calcium, Blood 7.9 mg/dL (8.5-10.1); Creatinine, Blood 0.7 mg/dL (0.40-1.00); Potassium, Blood 3.4 mmol/L (3.5-5.5)
--- NOTE | 2021-11-21 04:42 | NUR ---
CALLED DR TRINA FREEDMAN REGARDING PT'S CRITICAL LABS. WBC 0.11, PLT'S OF 3 AND HGB NOT CRITICAL BUT AT 6.7. DR FREEDMAN TO PUT IN ADDITIONAL ORDERS.
--- NOTE | 2021-11-21 07:13 | NUR ---
SHIFT SUMMARY PT IS ALERT AND ORIENTED. LAST NIGHT SHE MENTIONED THAT SHE HAD LOST TRACK OF TIME AND VOICED PERSONAL CONCERNS (PREVIOUS NOTES). HR HAD BEEN ELEVATED AND ADDRESSED, SHE WAS THEN HYPOTENSIVE DR FREEDMAN WAS CALLED. SHE VOICED THAT SHE WAS TIRED AND TIRED OF FIGHTING. SHE DENIES PAIN OR SOB. SHE HAS BEEN INCEASED FROM 2L TO 3L NC. SHE HAS VERY POOR APPETITE. BUTT IN PLACE AND DRAINING. CALL LIGHT IS WITHIN REACH.
--- NOTE | 2021-11-21 10:30 | NUR ---
Pt resting in bed with her eyes closed. Pt's son and Pt's sister at bedside. Offered active listening as son reviews discussion that took place with Dr Clarke this AM. He reports family is aware and family will discuss options for comfort care and hospice. Answered some questions regarding hospice. Gentle discussion regarding Pt's code status. Son reports plan to discuss with family soon to consider DNR. Continued therapeutic visit. Spoke with Primary RN Myriam and discussed case. Palliative Care will remain available.
--- NOTE | 2021-11-21 11:11 | NUR ---
Post transfusion temperature elevated. Discussed with charge auditor, Dario. Pt has had no other signs of symptoms of transfusion reaction. Pt has routinely been having fevers. Medicated with tylenol suppository.
[2021-11-21 12:08] LABS: Hematocrit 19.8 % (33.0-51.0); Mean Corpuscular HGB 32.1 pg (26.0-34.0); Mean Corpuscular HGB Conc 35.4 g/dL (31.5-36.5); Mean Corpuscular Volume 91 fL (80-100); Mean Platelet Volume 12.5 fL (9.1-12.4); RDW Coefficient Variation 16.1 % (11.7-14.2); RDW Standard Deviation 52.8 fL (35.1-46.3); Red Blood Cell Count 2.18 M/mm3 (3.80-5.20)
[2021-11-21 12:32] LABS: Platelet Count 5 K/mm3 (150-400)
[2021-11-21 12:36] LABS: White Blood Cell Count 0.14 K/mm3 (4.00-11.30)
--- NOTE | 2021-11-21 12:55 | NUR ---
Received call from dump truck driver Gabe reporting would like Pt's code status changed to DNR. Pt resting in bed with her eyes opened. Pt denies pain at this time. Spoke with Pt's spouse and son out in parr. Confirmed with family regarding code status. Spouse and son report Pt's wishes at this time is DNR. Spoke with Primary RN Myriam and discussed case. Myriam will call Dr Hooper and change code status.
[2021-11-21 13:04] LABS: BASOPHILS PERCENT MAN 0 % (0-2); EOSINOPHILS PERCENT MAN 0 % (0-6); LYMPHOCYTES ABSOLUTE MAN 0.11 K/mm3 (0.84-5.20); LYMPHOCYTES PERCENT MAN 81 % (21-46); MONOCYTES ABSOLUTE MAN 0.01 K/mm3 (0.16-1.47); MONOCYTES PERCENT MAN 10 % (4-13); NEUTROPHILS ABSOLUTE MAN 0.01 K/mm3 (1.96-9.15); SEG NEUTROPHILS PERCENT MAN 10 % (41-73); TOTAL CELLS COUNTED 31
--- NOTE | 2021-11-21 13:39 | NUR ---
Spiritual care visit conducted. Pt is sleeping and spouse, Ziggy, sister and son are present in the rm. Sister and son leave the rm for part of the visit. Ziggy talks at length about his Christain beliefs about , dying and heaven. He is emotional at times talking about the depth of the struggle as shares about the pain of watching his love slip from his grasp. He quickly steps back into discussing the Bible, pt's positive characteristics and his hope in being reunited with her again someday. I normalize his feelings and experience, encourage self care and provide therapeutic listening, anticipatory grief support, gentle counseling case manager, recitation of scripture and prayer. Ziggy responds well to all interventions and shows signs of increased peace and being comforted. I will continue to remain available.
--- NOTE | 2021-11-21 17:22 | NUR ---
SUMMARY Neuro: Pt responsive to verbal stimulus. Able to give PO medications this AM but all other PO medications have been held because for late AM and this afternoon, pt is unable to stay alert for more than a few seconds at a time. Pt has had intermittent fevers, effectively treated with AL tylenol and removal of blankets / adding fan. Musculoskeletal: Total care for all ADLs including Q2H left/right repositioning. Unable to meaninfully participate with physical therapy today. Respiratory: SpO2 90% or greater with 3 LPM NC. Bibasilar crackles. Nonproductive cough. GI: Unable to take PO this shift. : Szymanski catheter patent and draining joe urine. Skin: Unchanged from initial assessment. Psychosocial: Various familiy members in to see patient today. Update given to family.
--- NOTE | 2021-11-21 18:11 | NUR ---
Call placed to Dr Hooper to discuss minimal improvement noted in H&H and platelet count after pt received transfusion. Provider states plan to reorder labs tomorrow morning, during day shift, and discuss results with family before proceeding with transfusion. Per provider's assessment and this RN's assessment, pt's family is heavily considering comfort care. Provider gave orders for roxanol and ativan.
--- NOTE | 2021-11-22 06:12 | NUR ---
SHIFT SUMMARY PATIENT RESTLESS THROUGHOUT NIGHT. VERY LETHARGIC AND SLOW TO RESPOND. DIFFICULTY SWALLOWING, SO HELD EVENING PO MEDS. FOLLOWS COMMANDS AND IS ORIENTED TO PERSON, PLACE, AND SITUATION. NO COMPLAINTS OF PAIN THROUGHOUT SHIFT. PT ON 3LNC MAINTAINING O2 92-94. TACHYPNIC WITH EXERTION. HR AFIB WITH RATE 120-160 OVERNIGHT. CONTACTED MD MULTIPLE TIMES FOR RATE CONTROL, SEE ORDERS FOR MORE INFORMATION. PRN IV METOPROLOL GIVEN X3, NS BOLUS, AND PRN ATIVAN X1. SMALL SMEAR BM. BUTT IN PLACE DRAINING TO GRAVITY. 1100 UOP OVERNIGHT. SKIN RED AND WARM, PETECHIA ON BACKSIDE AND WOUNDS ON BUTTOCKS.
--- NOTE | 2021-11-22 13:58 | NUR ---
PATIENT UPDATE BRIANA FROM PALLIATIVE CARE IS MEETING WITH AND FAMILY CURRENTLY. SPOKE WITH THIS RN PREVIOUSLY ABOUT HIS AND THE FAMILY'S DECISION TO PUT THE PATIENT ON COMFORT CARE. FAMILY VERBALIZED UNDERSTANDING WHAT THIS MEANT IN REGARDS TO THE CARE FOR THE PATIENT. CALL PLACED TO MD POOL WITH UPDATE TO THIS DECISION. BRIANA FROM PALLIATIVE AGREES TO DECISION AND CARE PLAN FOR PATIENT. FAMILY AT BEDSIDE. NEUTROPENIC PRECAUTIONS IN PLACE. BED IN LOWEST POSITION AND CALL LIGHT WITHIN REACH.
--- NOTE | 2021-11-22 14:41 | NUR ---
Pt resting in bed with her eyes closed. Family at bedside. Met with Pt's spouse Ziggy outside of Pt's room. Ziggy reports he and family are ready to move forward with comfort care. Gentle education on comfort care philosophy with V/U made by Ziggy. Spoke with Primary RNs Low and Miriam. Discussed case and concerns. Spoke with Dr Hooper and discussed case. Placed comfort care order, comfort care order set, and D/C maintenance medications per V/O from Dr Hooper. PPS 20% Palliative Care will remained available for symptom management and supportive visits
--- NOTE | 2021-11-22 15:13 | NUR ---
PATIENT UPDATE FAMILY EDUCATED ON COMFORT CARE. SALINE LOCKED IV AND STOPPED FLUIDS. CATHETER DRAINING TO GRAVITY. PATIENT EXPRESSED COMFORT. THIS RN OFFERED TO MOVE PATIENT AND REPOSITION HER. PATIENT REFUSED AND STATED SHE WAS COMFORTABLE AT THIS TIME AND DOES NOT WANT TO BE MOVED. NO SIGNS OF DISTRESS. FAMILY AT BEDSIDE. GLASS SCIENCE ENGINEER CURRENTLY IN ROOM WITH FAMILY GIVING SUPPORT.
--- NOTE | 2021-11-22 15:27 | NUR ---
Spiritual Care - Nurse request. Pt. is comfort care and is somnilent but displays evidence of listeneing to everything that is going on. Family welcomes my visit. Rapport is established with family, and prayer is given. Family verbalized gratitude for the spiritual care given by both chaplains.
--- NOTE | 2021-11-22 17:35 | NUR ---
SHIFT SUMMARY PATIENT WAS SWITCHED TO COMFORT CARE THIS AFTERNOON. FAMILY AND PATIENT ARE AGREEABLE TO THIS PLAN. FAMILY HAS BEEN IN THE ROOM WITH THE PATIENT THROUGHOUT THE SHIFT. PATIENT HAS NOT REQUIRED PHARMACOLOGIC INTERVENTIONS FOR PAIN/AGGITATION AT THIS TIME. NO S/S OF RESPIRATORY DISTRESS OR AIR HUNGER. PATIENT VERBALIZES COMFORT AND REQUESTS TO NOT BE TURNED WHEN OFFERED. PATIENT WAS GIVEN RECTAL TYLENOL FOR FEVER. PATIENT TOLERATED WELL. FOAM DRESSINGS PLACED ON BUTTOCKS FOR OPEN SORE AND FOR REDDENED/BLANCHABLE PRESSURE AREA ON COCCYX. CATHETER IS DRAINING JAYY COLORED URINE TO GRAVITY. PILLOWS PLACED TO FLOAT COCCYX AND HEELS. PATIENT IS LETHARGIC AT TIMES BUT IS STILL ABLE TO ANSWER APPROPRIATELY WHEN AWAKE. COMFORT CART IN ROOM FOR FAMILY. 3L O2 VIA NC ON PATIENT TO MAINTAIN SATS/COMFORT. BED IN LOWEST POSITION AND CALL LIGHT WITHIN REACH.
--- NOTE | 2021-11-22 18:24 | NUR ---
PATIENT REPOSITIONED WITH PILLOWS AND RUBBED LOTION ONTO BACK. PATIENT VERBALIZED COMFORT. PATIENT/FAMILY DENIED ANY ADDITONAL NEEDS AT THIS TIME.
--- NOTE | 2021-11-22 20:06 | NUR ---
ASSUMED CARE OF PT AT 1900. REPORT RECEIVED. PT UNDER CARE AND COMFORT ORDERS. PT IN NO APPARENT DISTRESS. DENIES COMPLAINTS OF PAIN. OFFER MADE TO REPOSITION PT WHEREAS SHE DECLINED SECONDARY TO BEING COMFORTABLE IN PRESENT POSITION. WILL CONTINUE TO MONITOR. WILL REVIEW CHART AND PLAN OF CARE FOR THIS PT.
--- NOTE | 2021-11-22 22:26 | NUR ---
PATIENT ARRIVED TO ROOM 357 AT 2210. C/O GENERALIZED DISCOMFORT AND REQUESTED IBUPROPHEN. THIS IS ONE OF HER HOME MEDS. PT AGREED TO TRY 5MG ROXYNOL FOR HER DISCOMFORT.
--- NOTE | 2021-11-22 22:27 | NUR ---
REPORT GIVEN TO VITO MONK FOR PT TRANSFER TO ROOM 357. ALLOWED FOR QUESTIONS. PT LEAVES PCU 16 AT 2208. DENIES PAIN OR DISTRESS.
--- NOTE | 2021-11-23 04:17 | NUR ---
ADRIANA HAS BEEN QUIET SINCE HER ARRIVAL TO ROOM 357. SHE IS VERY FATIGUED IN APPEARANCE AND VOICE. SHE DOES HAVE A FREQUENT DRY NON PRODUCTIVE COUGH THAT DOES CAUSE HER SOME PAIN IN THE ANTERIOR CHEST. MOISTURE ADDED TO 02 VIA NASAL CANNULA AT 2 L PER MINUTE PER PATIENT REQUEST FOR COMFORT. ROXYNOL 5MG GIVEN TWICE WITH GOOD RESULT.
--- NOTE | 2021-11-23 17:39 | NUR ---
PT HAS ONLY NODDED OR GROANED. PT HAS BEEN KEPT COMFORTABLE WITH Q2 HR BED POSTIONING AND TREATED FOR PAIN PER EMAR. PT HAS FAMILY AT BED SIDED. NO DISTRESS NOTED. WILL CONTINUE TO MONITOR.
--- NOTE | 2021-11-23 19:24 | NUR ---
multiple visit to see patient. quilt and pillow given oral care and family support brought some lavender.encouraged interaction. Nurse medicted pt frequntly to control air hunger. Family interacting well.
--- NOTE | 2021-11-23 19:27 | NUR ---
pt resting well family at bedside
--- NOTE | 2021-11-24 18:46 | NUR ---
Met briefly with family who was at bedside. Pt appeared comfortable and family seemed to be coping appropriately. Nurse arrived to reposition pt. I will remain available.
--- NOTE | 2021-11-24 19:27 | NUR ---
PT PASSED AT 1855 AND WAS VERIFIED BY THIS ANALYTICS ANALYST.
--- NOTE | 2021-11-27 09:04 | NUR ---
Follow up Bereavement call. I spoke with Ziggy (Antonietta's spouse). I provided grief support, therapeutic listening and gentle primary substance abuse counselor, as Ziggy shares about the day that his spouse . He speaks of his zulema and the beauty and peacefulness of the moment she . He is tearful and thankful. He asks me to perform the but I respectfully decline. I will continue to remain available for bereavement support.
== END 2021-11-24 18:53 | DRG 871 ==
LOC: ER 02:01 → PCU 03:27 → MEDS 11-12 16:38 → PCU 11-16 11:13 → MEDS 11-22 22:13
PROVIDERS: Emergency Medicine; Family Medicine; Internal Medicine; Student in an Organized Health Care Education/Training Program; ADMIT Internal Medicine
PROC: 30233R1 Transfusion of Nonautologous Platelets into Peripheral Vein, Percutaneous Approach (ICD-10-PCS; principal; 2021-11-10)
PROC: 30233N1 Transfusion of Nonautologous Red Blood Cells into Peripheral Vein, Percutaneous Approach (ICD-10-PCS; 2021-11-10)
PROC: 3E03329 Introduction of Other Anti-infective into Peripheral Vein, Percutaneous Approach (ICD-10-PCS; 2021-11-10)
PROC: 6A551Z2 Pheresis of Platelets, Multiple (ICD-10-PCS; 2021-11-10)
PROC: 05HY33Z Insertion of Infusion Device into Upper Vein, Percutaneous Approach (ICD-10-PCS; 2021-11-10)
DX: A41.9 Sepsis, unspecified organism (principal); D61.810 Antineoplastic chemotherapy induced pancytopenia; J96.01 Acute respiratory failure with hypoxia; G92.8 Other toxic encephalopathy; C92.00 Acute myeloblastic leukemia, not having achieved remission; Z66 Do not resuscitate; I48.0 Paroxysmal atrial fibrillation; T45.1X5A Adverse effect of antineoplastic and immunosuppressive drugs, initial encounter; Z51.5 Encounter for palliative care; R65.20 Severe sepsis without septic shock; E87.6 Hypokalemia; Z87.891 Personal history of nicotine dependence; Z88.0 Allergy status to penicillin; Z91.011 Allergy to milk products; Z90.710 Acquired absence of both cervix and uterus; Z79.2 Long term (current) use of antibiotics; Z79.899 Other long term (current) drug therapy
CPT/HCPCS: 36415; 36430; 51700; 51702; 71045; 80048; 80053; 80069; 81003; 83605; 83735; 83880; 84100; 84132; 85025; 86140; 86850; 86900; 86901; 86923; 87040; 87076; 87185; 93005; 93010; 96374; 97110; 97112; 97161; 99285-25; A9270; C1751; J0133; J0692; J1940; J1956; J2060; J3480; J7030; J7040; J7050; J7120; P9016; P9035; P9037; P9053